=== PATIENT | female | born 1990 | race Caucasian/White ===

== ENCOUNTER 2016-11-16 04:09 | Emergency (ER) | payer OTHER ==
[~2016-11-16] VITALS: Ht 162.6 cm; Wt 64.3 kg
[~2016-11-16 04:09] MED LIST: GING1CAP2 PO; KFL500HP PO; PRENTAB26 PO
[2016-11-16 04:18] VITALS: TEMP 36.4; Ht 162.6 cm; Wt 64.3 kg
[2016-11-16 04:48] LABS: URINE APPEARANCE CLOUDY (CLEAR); URINE BILIRUBIN NEG (NEG); URINE COLOR YELLOW; URINE EPITHELIAL CELL AUTO >30 /lpf (0-5); URINE NITRITE NEG (NEG); URINE SPECIFIC GRAVITY 1.024 (1.000-1.030); UROBILINOGEN NEG (NEG); ZZUR CULT IF INDIC CLEAN CATCH YES
[2016-11-16 04:51] LABS: MANUAL MICROSCOPIC REQUIRED? NO; REVIEW REQ? NO
[2016-11-16] MEDS ORDERED: CEPH500C PO (05:04)
[2016-11-16] MEDS ORDERED: CEPHALEXIN MONOHYDRATE 250 MG CAP PO ONE (05:15)
[2016-11-16] MEDS ORDERED: CEPHALEXIN 500MG HOME PACK 1 EA BTL PO ONE (05:15)
[2016-11-16 05:16] VITALS: BP 91/52; PULSE 87; O2SAT 97
[2016-11-16] MEDS ORDERED: ACET325T96 PO (06:00)
--- NOTE | 2016-11-18 13:00 | EMERGENCY ROOM VISIT NOTE ---
History First contact with patient: 04:23 Chief Complaint: BACK PAIN Stated Complaint: BACK PAIN, 26 WEEKS PREG History of Present Illness The patient is a 25 year old female who presents to the Emergency Room with complaints of right-sided low back pain for the past 2 days. The patient is 26 weeks , and reports that she has had [place] contractions all day. She has not had vaginal drainage, discharge, or bleeding. No distinct abdominal pain. She has urinary frequency, however she tripped presents to the . She has been taking Tylenol without significant improvement of symptoms. She has not contacted her [facility]. Review of Systems More than 10 systems were reviewed and otherwise negative with the exception of history of present illness. Past Medical/Surgical History Medical Problems: (1) Anemia (2) [place] contractions (3) Depression (4) Hyperthyroidism (5) Intrauterine (6) Ovarian cyst (7) Vaginal delivery Family History Malignancy Social History Smoking Status: Never Smoker Alcohol Use: none Drug Use: none Marital Status: in relationship Housing Status: lives with significant other Occupation Status: employed Current/Historical Medications Scheduled Cephalexin Monohydrate (Keflex), 500 MG PO TID Multivit/Min/Iron/Fol Ac/Pren ( Vitamin), 1 TAB PO DAILY Miscellaneous Medications Acetaminophen Tab (Tylenol), 325 MG PO Allergies Coded Allergies: Nitrofurantoin (Verified Allergy, Mild, BLISTERS IN MOUTH, 11/16/16) SWELLING Physical Exam Vital Signs Date Time Temp Pulse Resp B/P Pulse Ox O2 Delivery O2 Flow Rate FiO2 11/16/16 05:16 87 20 91/52 97 11/16/16 04:18 36.4 90 16 106/70 97 Room Air Pain Rating (0-10): 7.0 Physical Exam VITALS: Vitals are noted on the nurse's note and reviewed by myself. Vital signs stable. GENERAL: Well-developed, well-nourished, white female, who is in no acute distress and resting comfortably. Patient is cooperative with the examination. HEAD: Normocephalic atraumatic. HEART: Regular rate and rhythm without murmurs gallops or rubs. LUNGS: Clear to auscultation bilaterally without wheezes, rales or rhonchi. No retractions or accessory muscle use. ABDOMEN: Positive normal bowel sounds x 4. Soft consistent with 26 week gestation. MUSCULOSKELETAL: No muscle atrophy, erythema, or edema noted. Mild right-sided SI joint tenderness on palpation. No CVA tenderness. NEURO: Patient was alert and oriented to person place and time. CN II through XII grossly intact. Medical Decision & Procedures Laboratory Results Test 11/16/16 04:30 Urine Color YELLOW Urine Appearance CLOUDY (CLEAR) Urine pH 7.0 (4.5-7.5) Urine Specific [place] 1.024 (1.000-1.030) Urine Protein NEG (NEG) Urine Glucose (UA) NEG (NEG) Urine Ketones NEG (NEG) Urine Occult Blood NEG (NEG) Urine Nitrite NEG (NEG) Urine Bilirubin NEG (NEG) Urine Urobilinogen NEG (NEG) Urine Leukocyte Esterase SMALL (NEG) Urine WBC (Auto) 10-30 /hpf (0-5) Urine RBC (Auto) 0-4 /hpf (0-4) Urine Hyaline Casts (Auto) 10-30 /lpf (0-5) Urine Epithelial Cells (Auto) >30 /lpf (0-5) Urine Bacteria (Auto) 2+ (NEG) Date/Time Source Procedure Growth Status 11/16/16 04:30 Urine , Clean Catch Urine Culture - Final MORE THAN THREE TYPES OF ORGANISMS [place]... Complete Medications Administered Medications (Trade) Dose Ordered Sig/Kelly Route Start Time Stop Time Status Last Admin Dose Admin Cephalexin Monohydrate (Keflex 500MG Home Pack) 1 homepack NOW ONCE PO 11/16/16 05:15 11/16/16 05:16 DC 11/16/16 05:11 1 HOMEPACK Cephalexin Monohydrate (Keflex Cap) 500 mg NOW ONCE PO 11/16/16 05:15 11/16/16 05:16 DC 11/16/16 05:11 500 MG ED Course Physical exam and history were performed. Nursing notes and EMR were reviewed. Patient appears to have right-sided low back pain as well as [place] contractions. On examination the patient does have some mild tenderness that appears muscle skeletal in nature. She was able to provide a urine sample which is concerning for a UTI. I discussed the case with my attending physician , Dr. Gonsalez, and we will start patient on Keflex. The patient appears otherwise clear from the emergency department standpoint. I did discuss the case with the [facility] upstairs, and recommendation is the patient leave here, and go up there for monitoring for her contractions. The patient was in agreement of this plan and was discharged to go upstairs to the mother-baby floor. The chart was completed utilizing [employer] Speech Voice Recognition Software. Grammatical errors, random word insertions, pronoun errors, and incomplete sentences are an occasional consequence of this system due to software limitations, ambient noise, and hardware issues. Any formal questions or concerns about the content, text, or information contained within the body of this dictation should be directly addressed to the provider for clarification. . Medical Decision Differential diagnosis includes, but is not limited to: Sprain, strain, fracture , dislocation, subluxation, contusion, musculoskeletal pain, related pain, UTI, contractions, and others Impression Primary Impression: UTI (urinary tract infection) Departure Information Dispostion Home / Self-Care Condition GOOD Prescriptions Cephalexin Monohydrate (Keflex) 500 Mg Cap 500 MG PO TID for 10 Days, #30 CAP Prov: Adonay Su PA-C 11/16/16 Forms HOME CARE DOCUMENTATION FORM, IMPORTANT VISIT INFORMATION Patient Instructions A Signature Page, [facility] Additional Instructions You were seen and evaluated today on an emergency basis only. This is not a substitute for, or an effort to provide, complete comprehensive medical care. It is not possible to recognize and treat all injuries or illnesses in a single emergency department visit. For this reason it is recommended that you followup with your [facility] as scheduled on Sunday for ongoing care and evaluation. Cephalexin(Keflex) 500mg: Take one pill 3 times daily for 10 days for your urine infection. All antibiotics can cause diarrhea. If this occurs and you feel worse or it does not resolve in 1-2 days follow up with your doctor or return to the Emergency Department as this could be signs of serious underlying problems. Any medication can cause an allergic reaction, stop the pills immediately and return to the ER for rash, hives, breathing difficulties, or swelling. You are welcome to return to the emergency department anytime with new, worsening, or concerning symptoms.
== END 2016-11-16 05:18 | disposition home or self-care (01) ==
LOC: C.EDB 04:11
DX: O08.83 Urinary tract infection following an ectopic and molar pregnancy (principal); Z3A.26 26 weeks gestation of pregnancy; D64.9 Anemia, unspecified; F32.9 Major depressive disorder, single episode, unspecified; E05.90 Thyrotoxicosis, unspecified without thyrotoxic crisis or storm; N83.209 Unspecified ovarian cyst, unspecified side; Z88.8 Allergy status to other drugs, medicaments and biological substances

== ENCOUNTER 2016-11-16 05:35 | Outpatient (CLI) | payer OTHER ==
[~2016-11-16] VITALS: Ht 154.9 cm; Wt 60.0 kg
[~2016-11-16 05:35] MED LIST changes: +CEPH500C PO
[2016-11-16] MEDS ORDERED: ACET325T96 PO (06:00)
[2016-11-16 06:01] VITALS: Ht 154.9 cm; Wt 60.0 kg
== END 2016-11-16 06:08 | disposition home or self-care (01) ==
LOC: C.OPB 05:35 → C.LD 05:35 → C.OPB 06:08
PROVIDERS: ATTEND Obstetrics & Gynecology
DX: O47.9 False labor, unspecified (principal); Z3A.26 26 weeks gestation of pregnancy

== ENCOUNTER 2017-01-22 12:51 | Emergency (ER) | payer BC, OTHER ==
[~2017-01-22] VITALS: Ht 154.9 cm; Wt 68.5 kg
[~2017-01-22 12:51] MED LIST changes: +ACET325T96 PO; -CEPH500C PO; -GING1CAP2 PO; -KFL500HP PO
[2017-01-22 13:00] VITALS: Ht 154.9 cm; Wt 68.5 kg
[2017-01-22] MEDS ORDERED: ACET-1256 PO (13:11)
[2017-01-22] MEDS ORDERED: SODIUM CHLORIDE 0.9% 1000ML 1,000 ML IV STA (13:20)
[2017-01-22] MEDS ORDERED: ONDANSETRON INJ 2 MG/ML 2 ML VIAL IV STA (13:20)
[2017-01-22 13:55] LABS: BASO % 0.1 %; BASO ABS # 0.01 K/uL (0-0.2); COMPLETE YES; EOS % 0.8 %; HEMATOCRIT 27.8 % (37-47); IG% 0.4 %; LYMPH % 12.5 %; LYMPH ABS # 1.21 K/uL (1.2-3.4); MEAN CELL VOLUME 82.2 fL (80-100); MEAN CORPUSCULAR HEMOGLOBIN 27.2 pg (25-34); MEAN CORPUSCULAR HGB CONC 33.1 g/dl (32-36); MEAN PLATELET VOLUME 9.4 fL (7.4-10.4); MONO % 4.7 %; NEUT % 81.5 %; PLATELET COUNT 228 K/uL (130-400); RED BLOOD COUNT 3.38 M/uL (4.2-5.4)
[2017-01-22 14:22] LABS: ALT/SGPT 18 U/L (12-78); AST/SGOT 18 U/L (15-37); BLOOD UREA NITROGEN 9 mg/dl (7-18); BUN/CREATININE RATIO 18.7 (10-20); CALCIUM 8.2 mg/dl (8.5-10.1); CARBON DIOXIDE 24 mmol/L (21-32); CHLORIDE 105 mmol/L (98-107); GLUCOSE 87 mg/dl (70-99); POTASSIUM 3.4 mmol/L (3.5-5.1); SODIUM 137 mmol/L (136-145)
[2017-01-22 14:24] LABS: ALKALINE PHOSPHATASE 91 U/L (45-117)
[2017-01-22 15:17] LABS: URINE APPEARANCE CLEAR (CLEAR); URINE BILIRUBIN NEG (NEG); URINE COLOR YELLOW; URINE EPITHELIAL CELL AUTO >30 /lpf (0-5); URINE NITRITE NEG (NEG); URINE PH 7.5 (4.5-7.5); URINE SPECIFIC GRAVITY 1.019 (1.000-1.030); UROBILINOGEN NEG (NEG); ZZUR CULT IF INDIC CLEAN CATCH YES
[2017-01-22 15:20] LABS: MANUAL MICROSCOPIC REQUIRED? NO; REVIEW REQ? YES
[2017-01-22] MEDS ORDERED: ONDA4TAB10 SL (16:15)
--- NOTE | 2017-01-22 16:17 | EMERGENCY ROOM VISIT NOTE ---
History First contact with patient: 13:12 Chief Complaint: BACK PAIN Stated Complaint: BACK PAIN, VOMITING, DIZZINESS History of Present Illness The patient is a 26 year old female who is 36 weeks presents to the Emergency Room with complaints of nausea and vomiting which started last night at 11 PM. The patient also states that she woke up this morning with low back pain but denies any flank pain, abdomen pain, urinary symptoms of frequency, urgency, dysuria or hematuria. The patient states she had a normal bowel movement yesterday. The patient states that her had similar symptoms yesterday morning. The patient has been able to keep down some Gatorade and a few crackers today. Review of Systems 10 system review was performed and was negative unless stated otherwise history of present illness. Past Medical/Surgical History Medical Problems: (1) Anemia (2) [place] contractions (3) Depression (4) Hyperthyroidism (5) Intrauterine (6) Ovarian cyst (7) Vaginal delivery Family History Malignancy Social History Smoking Status: Never Smoker Alcohol Use: none Drug Use: none Marital Status: in relationship Housing Status: lives with significant other Occupation Status: employed Current/Historical Medications Scheduled Multivit/Min/Iron/Fol Ac/Pren ( Vitamin), 1 TAB PO DAILY Miscellaneous Medications Acetaminophen (Tylenol), 500 MG PO Allergies Coded Allergies: Nitrofurantoin (Verified Allergy, Mild, BLISTERS IN MOUTH, 01/22/17) SWELLING Physical Exam Vital Signs Date Time Temp Pulse Resp B/P Pulse Ox O2 Delivery O2 Flow Rate FiO2 01/22/17 14:14 87 18 97/58 97 Room Air 01/22/17 13:00 36.9 109 18 93/61 98 Room Air Physical Exam GENERAL: 26-year-old white female who is 36 weeks presents in no acute distress. MENTAL Status: Alert and oriented 3. MOUTH: Mucosa is slightly dry. NECK: Supple, no lymphadenopathy noted. No carotid bruits noted. LUNGS: Clear auscultation without wheezes rales or rhonchi. CARDIAC: Regular rate and rhythm without murmur. Pulses is full and equal throughout. BACK: No CVA tenderness noted. ABDOMEN: Positive bowel sounds all 4 quadrants. Abdomen is firm consistent with 36 weeks . LUMBAR SPINE: No gross bony deformity noted. The patient is nontender to palpation over the spinous processes. She is tender to palpation over the paravertebral regions bilaterally. Full range of motion. EXTREMITIES: No cyanosis or edema noted. Medical Decision & Procedures Laboratory Results 01/22/17 13:35 Red Blood Count 3.38, Mean Corpuscular Volume 82.2, Mean Corpuscular Hemoglobin 27.2, Mean Corpuscular Hemoglobin Concent 33.1, Mean Platelet Volume 9.4, Neutrophils (%) (Auto) 81.5, Lymphocytes (%) (Auto) 12.5, Monocytes (%) (Auto) 4.7, Eosinophils (%) (Auto) 0.8, Basophils (%) (Auto) 0.1, Neutrophils # (Auto) 7.90, Lymphocytes # (Auto) 1.21, Monocytes # (Auto) 0.46, Eosinophils # (Auto) 0.08, Basophils # (Auto) 0.01 01/22/17 13:35 Test 01/22/17 13:35 White Blood Count 9.70 K/uL (4.8-10.8) Red Blood Count 3.38 M/uL (4.2-5.4) Hemoglobin 9.2 g/dL (12.0-16.0) Hematocrit 27.8 % (37-47) Mean Corpuscular Volume 82.2 fL (80-100) Mean Corpuscular Hemoglobin 27.2 pg (25-34) Mean Corpuscular Hemoglobin Concent 33.1 g/dl (32-36) Platelet Count 228 K/uL (130-400) Mean Platelet Volume 9.4 fL (7.4-10.4) Neutrophils (%) (Auto) 81.5 % Lymphocytes (%) (Auto) 12.5 % Monocytes (%) (Auto) 4.7 % Eosinophils (%) (Auto) 0.8 % Basophils (%) (Auto) 0.1 % Neutrophils # (Auto) 7.90 K/uL (1.4-6.5) Lymphocytes # (Auto) 1.21 K/uL (1.2-3.4) Monocytes # (Auto) 0.46 K/uL (0.11-0.59) Eosinophils # (Auto) 0.08 K/uL (0-0.5) Basophils # (Auto) 0.01 K/uL (0-0.2) RDW Standard Deviation 38.6 fL (36.4-46.3) RDW Coefficient of Variation 12.8 % (11.5-14.5) Immature Granulocyte % (Auto) 0.4 % Immature Granulocyte # (Auto) 0.04 K/uL (0.00-0.02) Urine Color YELLOW Urine Appearance CLEAR (CLEAR) Urine pH 7.5 (4.5-7.5) Urine Specific [place] 1.019 (1.000-1.030) Urine Protein NEG (NEG) Urine Glucose (UA) NEG (NEG) Urine Ketones TRACE (NEG) Urine Occult Blood NEG (NEG) Urine Nitrite NEG (NEG) Urine Bilirubin NEG (NEG) Urine Urobilinogen NEG (NEG) Urine Leukocyte Esterase MODERATE (NEG) Urine WBC (Auto) 10-30 /hpf (0-5) Urine RBC (Auto) 0-4 /hpf (0-4) Urine Hyaline Casts (Auto) 1-5 /lpf (0-5) Urine Epithelial Cells (Auto) >30 /lpf (0-5) Urine Bacteria (Auto) 1+ (NEG) Urine Renal Epithelial Cells 0-5 /lpf (0-5) Anion Gap 8.0 mmol/L (3-11) Est Creatinine Clear Calc Drug Dose 153.5 ml/min Estimated GFR () > 150.0 Estimated GFR (Non- 135.5 BUN/Creatinine Ratio 18.7 (10-20) Calcium Level 8.2 mg/dl (8.5-10.1) Total Bilirubin 0.4 mg/dl (0.2-1) Direct Bilirubin < 0.1 mg/dl (0-0.2) Aspartate Amino Transf (AST/SGOT) 18 U/L (15-37) Alanine Aminotransferase (ALT/SGPT) 18 U/L (12-78) Alkaline Phosphatase 91 U/L (45-117) Total Protein 6.5 gm/dl (6.4-8.2) Albumin 2.8 gm/dl (3.4-5.0) Lipase 126 U/L (73-393) Medications Administered Medications (Trade) Dose Ordered Sig/Kelly Route Start Time Stop Time Status Last Admin Dose Admin Sodium Chloride (Nss 1000ml) 1,000 ml @ 999 mls/hr Q1H1M STAT IV 01/22/17 13:20 01/22/17 14:20 DC 01/22/17 13:47 999 MLS/HR Ondansetron HCl (Zofran Inj) 4 mg NOW STAT IV 01/22/17 13:20 01/22/17 13:23 DC 01/22/17 13:47 4 MG ED Course The patient was evaluated. IV access was obtained. heart tones were 152. The patient was given 1 L normal saline wide-open. CBC and differential, renal profile, LFTs and lipase levels were ordered. Urinalysis was ordered. The patient was given Zofran 4 mg IV push for nausea. Labs are reviewed. The patient's hemoglobin was 9.2 and her hematocrit was 27.8. Her last hemoglobin was 10.2 on review of her EMR. I discussed the case withDr. Retana who agreed with treatment plan. I tried to reach Dr. Dominguez to talk to him about the patient that he was in the operating room. The patient was reevaluated and was feeling better. Her urine showed some leukocytes and bacteria but there was a lot epithelial cells therefore it will be sent for culture. Culture is pending. I spoke with Dr. Dominguez and stated just to encourage the patient to make sure she is taking iron pills. I spoke with the patient she states that she takes them every now and then because they make her sick. I told her he wants her to take them twice a day. The patient verbalized understanding. The patient was discharged home in stable condition. Medical Decision Differential diagnosis include gastroenteritis, small bowel obstruction, UTI, pyelonephritis, colitis Impression Primary Impression: Viral gastritis Additional Impression: Anemia Departure Information Dispostion Home / Self-Care Condition GOOD Prescriptions Ondasetron Odt (ZOFRAN ODT) 4 Mg Tab 4 MG SL Q6H for Nausea, #14 TAB Prov: Morena Feldman PA-C 01/22/17 Referrals Kina ChenC.R.N.P. (PCP) Forms HOME CARE DOCUMENTATION FORM, IMPORTANT VISIT INFORMATION Patient Instructions ED Nausea Vomiting, My [facility] Additional Instructions Push fluids. Take Zofran as needed for nausea. Follow bland diet. Advance diet slowly as tolerated. Try to take your iron pills twice daily. Keep scheduled appointment with [facility] for regular follow-up. If symptoms persist or worsen, return to ER. Problem Qualifiers Additional Impression: Anemia Anemia type: iron deficiency Iron deficiency anemia type: unspecified iron deficiency Qualified Codes: D50.9 - Iron deficiency anemia, unspecified
[2017-01-22 16:18] VITALS: BP 112/59; PULSE 78; TEMP 36.9; O2SAT 98
== END 2017-01-22 16:19 | disposition home or self-care (01) ==
LOC: C.EDB 12:52 → C.EDC 16:19
DX: O21.2 Late vomiting of pregnancy (principal); A08.4 Viral intestinal infection, unspecified; O99.013 Anemia complicating pregnancy, third trimester; D50.9 Iron deficiency anemia, unspecified; Z3A.36 36 weeks gestation of pregnancy

== ENCOUNTER 2017-02-09 05:10 | Inpatient (IN) | payer BC ==
[~2017-02-09] VITALS: Ht 154.9 cm; Wt 70.0 kg
[~2017-02-09 05:10] MED LIST changes: +ACET-1256 PO; -ACET325T96 PO; +ONDA4TAB10 SL
[2017-02-09] MEDS ORDERED: LACTATED RINGER'S 1000ML 1,000 ML IV PRN (05:44)
[2017-02-09] MEDS ORDERED: PENICILLIN G POTASSIUM IV 3 MU in DEXTROSE 5% 100ML 100 ML IV PRN (05:45)
[2017-02-09 05:56] VITALS: Ht 154.9 cm; Wt 70.0 kg
[2017-02-09] MEDS ORDERED: PRENTAB26 PO (05:57)
[2017-02-09] MEDS ORDERED: PENICILLIN G POTASSIUM IV 6 MU in DEXTROSE 5% 250ML 250 ML IV ONE (06:00)
[2017-02-09] MEDS: LACTATED RINGER'S 1000ML 1,000 ML IV SCH ×2 (06:14→09:09)
[2017-02-09 06:18] LABS: HEMATOCRIT 28.1 % (37-47); MEAN CELL VOLUME 79.8 fL (80-100); MEAN CORPUSCULAR HEMOGLOBIN 26.4 pg (25-34); MEAN CORPUSCULAR HGB CONC 33.1 g/dl (32-36); PLATELET COUNT 254 K/uL (130-400); RED BLOOD COUNT 3.52 M/uL (4.2-5.4); WHITE BLOOD COUNT 16.41 K/uL (4.8-10.8)
[2017-02-09] MEDS ORDERED: OXYTOCIN 30 UNITS/500ML NSS IV ONE (07:17)
[2017-02-09] MEDS ORDERED: BUTORPHANOL TARTRATE 1 MG/ML VIAL ONE (07:41)
[2017-02-09] MEDS ORDERED: BUTORPHANOL TARTRATE 1 MG/ML VIAL IV ONE (07:45)
[2017-02-09] MEDS ORDERED: BUPIVACAINE 0.25% 30 ML VIAL ONE (08:12)
[2017-02-09] MEDS ORDERED: EpHEDrine SULFATE INJ 50 MG/ML AMP ONE (08:12)
[2017-02-09] MEDS ORDERED: FENTANYL 2MCG/ML ROPIV 1.25MG/ML 100ML BAG EPI ONE (08:12)
[2017-02-09] MEDS: FENTANYL CITRATE INJ 50 MCG/1 ML 2 ML VIAL ONE ×2 (08:16→08:51)
[2017-02-09] MEDS ORDERED: LACTATED RINGER'S 1000ML 500 ML IV PRN (08:50)
[2017-02-09] MEDS ORDERED: NALOXONE HCL INJ 1 MG in SODIUM CHLORIDE 0.9% 1000ML 1,000 ML IV PRN (08:50)
[2017-02-09] MEDS ORDERED: NALOXONE HCL INJ 0.4 MG/1 ML VIAL/CARP IV PRN (09:00)
[2017-02-09] MEDS ORDERED: ONDANSETRON INJ 2 MG/ML 2 ML VIAL IV PRN (09:00)
[2017-02-09] MEDS ORDERED: NALBUPHINE HCL INJ 10 MG/ML AMP IV PRN (09:00)
[2017-02-09] MEDS ORDERED: PROMETHAZINE HCL INJ 12.5 MG in SODIUM CHLORIDE 0.9% 50ML 50 ML IV PRN (09:00)
[2017-02-09] MEDS ORDERED: EpHEDrine SULFATE INJ 50 MG/ML AMP IV PRN (09:00)
[2017-02-09] MEDS ORDERED: DiphenhydrAMINE HCL 50 MG/ML VIAL IV PRN (09:00)
[2017-02-09] MEDS ORDERED: FENTANYL 2MCG/ML ROPIV 1.25MG/ML 100ML BAG EPI PRN (09:00)
[2017-02-09] MEDS ORDERED: BENZOCAINE 20% AER SPR 82.5 GM CAN EXT PRN (09:45)
[2017-02-09] MEDS ORDERED: VARICELLA VIRUS VACCINE LIVE 1 VIAL SQ. ONE (09:45)
[2017-02-09] MEDS ORDERED: SUPERCREAM 0.870 % 15GM JAR EXT PRN (09:45)
[2017-02-09] MEDS ORDERED: OXYTOCIN 30 UNITS/500ML NSS IV PRN (09:45)
[2017-02-09] MEDS ORDERED: HYDROCORTISONE ACETATE 25 MG SUPP PR PRN (09:45)
[2017-02-09] MEDS ORDERED: LANOLIN OINT EXT PRN ×2 (09:45)
[2017-02-09] MEDS ORDERED: DIPHTHERIA/TETANUS/PERTUSSIS 0.5 ML SYR/VIAL IM. ONE (09:45)
[2017-02-09] MEDS ORDERED: ACETAMINOPHEN 325 MG TAB PO PRN (09:45)
--- NOTE | 2017-02-09 09:53 | DELIVERY SUMMARY ---
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 Group B strep positive, antibiotic started. She requested epidural. After epidural she had a bulging membranes and was 7-8 cm. ARM performed for clear fluid. heart rate tracing category 1. Rapidly progressed to fully dilated and pushed the baby over right occiput anterior position. Mouth suctioned then nares. No nuchal cord. Baby delivered with no excessive force and with the use of gentle traction. Live, vigorous . Cord clamped and cut. Cord gasses obtained. Cord blood obtained. Placenta removed with gentle traction. Small first degree tail repaired with 3-0 Vicryl. Sponge and instrument counts correct. Estimated blood loss 250 mL. I attest to the content of the Intraoperative Record and any orders documented therein. Any exceptio ns are noted below.
--- NOTE | 2017-02-09 10:33 | Anesthesia Procedure Note ---
Anesthesia Epidural Removal Nt Date & Time Feb 09, 2017 at 10:33 Vital Signs Pain Intensity: 0.0 Notes Mental Status: alert / awake / arousable, participated in evaluation Nausea / Vomiting: adequately controlled Pain: adequately controlled Airway Patency, RR, SpO2: stable & adequate BP & HR: stable & adequate Hydration State: stable & adequate Neuraxial Anesthesia: was administered Anesthetic Complications: no major complications apparent, pt satisfied with anesthetic care Epidural: removed without complications, with tip intact
[2017-02-09] MEDS: IBUPROFEN 600 MG TAB PO PRN ×3 (13:07→19:39)
[2017-02-09 14:32] VITALS: BP 97/53; PULSE 81; TEMP 36.7
[2017-02-09 15:27] VITALS: BP 97/62; PULSE 82; TEMP 36.9
[2017-02-09] MEDS: ACETAMINOPHEN/CODEINE 300/30MG TAB PO PRN ×2 (15:49→19:40)
[2017-02-09] MEDS: DOCUSATE SODIUM 100 MG CAP PO SCH (19:39)
[2017-02-09 19:40] VITALS: BP 107/71; PULSE 66; TEMP 37
[2017-02-09 23:00] VITALS: BP 103/66; PULSE 71; TEMP 37
[2017-02-10] MEDS: IBUPROFEN 600 MG TAB PO PRN ×6 (01:21→20:53)
[2017-02-10] MEDS: ACETAMINOPHEN/CODEINE 300/30MG TAB PO PRN ×6 (01:23→21:50)
[2017-02-10 03:40] VITALS: BP 104/69; PULSE 73; TEMP 36.8
--- NOTE | 2017-02-10 06:27 | Progress Note ---
Subjective Feb 10, 2017. Subjective conversation w/ patient, physical exam Ambulation: ambulating normally Voiding: no voiding problems Passing Gas: Yes Diet Tolerance: Regular Diet Lochia: Small Feeding Type: Breast Feeding Review of Systems Constitutional: No chills, No fever Respiratory: No cough, No shortness of breath Cardiac: No chest pain, No claudication Objective Vital Signs Date Time Temp Pulse Resp B/P Pulse Ox O2 Delivery O2 Flow Rate FiO2 02/10/17 03:40 36.8 73 18 104/69 Room Air 02/09/17 23:00 Room Air 02/09/17 23:00 37.0 71 18 103/66 Room Air 02/09/17 19:40 37.0 66 18 107/71 Room Air 02/09/17 15:30 Room Air 02/09/17 15:27 36.9 82 20 97/62 02/09/17 14:32 36.7 81 20 97/53 Physical Exam General Appearance: WELL-APPEARING, NO APPARENT DISTRESS Respiratory/Chest: lungs clear, no accessory muscle use Cardiovascular: regular rate, rhythm, no murmur Fundus: Firm, Non-Tender, Relation to Umbilicus (2 cm below) Extremities: non-tender, no calf tenderness Laboratory Results Last 24 Hours Test 02/10/17 04:44 Assessment and Plan Problem List Medical Problems: (1) Abdominal cramping Status: Acute (2) Abdominal cramping, bilateral lower quadrant Status: Acute (3) Acute gastritis Status: Acute (4) Anemia Status: Acute (5) Biliary colic Status: Acute (6) Low back pain Status: Acute (7) Miscarriage Status: Acute (8) Pleurisy Status: Acute (9) Pleuritic chest pain Status: Acute (10) Sprain of knee Status: Acute (11) Threatened miscarriage Status: Acute (12) Upper respiratory infection Status: Acute (13) Vaginal discharge Status: Acute (14) Viral gastritis Status: Acute Post- Day#: 1 Continue Routine Care: s/p Day 1 - vitals reviewed and wnl - Hgb 9.3 yesterday yesterday - blood: O-, GBS+, Rubella immune - encourage ambulation, monitor lochia, and encourage breast feeding - patient doing well clinically - CONTINUE ROUTINE POST CARE Resident Physician Supervision Note: I interviewed and examined the patient. Discussed with Dr. Celis and agree with findings and plan as documented in the note. Any exceptions or clarifications are listed here: [None] Documented By: Robel Dominguez
[2017-02-10 07:30] VITALS: BP 95/60; PULSE 72; TEMP 36.3
[2017-02-10 07:55] LABS: HEMATOCRIT 26.1 % (37-47)
[2017-02-10] MEDS: DOCUSATE SODIUM 100 MG CAP PO SCH ×2 (07:56→19:50)
[2017-02-10] MEDS: PRENATAL VITAMIN TAB PO SCH (07:56)
[2017-02-10 15:00] VITALS: BP 99/65; PULSE 70; TEMP 36.4
[2017-02-10 23:30] VITALS: BP 89/54; PULSE 68; TEMP 36.5; O2SAT 96
[2017-02-11] MEDS: IBUPROFEN 600 MG TAB PO PRN ×3 (02:22→10:35)
[2017-02-11] MEDS: ACETAMINOPHEN/CODEINE 300/30MG TAB PO PRN ×3 (02:23→10:36)
--- NOTE | 2017-02-11 05:11 | Discharge Instructions ---
Discharge Instructions Date of Service Feb 11, 2017. Admission Reason for Admission: LABOR Discharge Discharge Diagnosis / Problem: s/p delivery Discharge Goals Goal(s): Routine recovery after delivery Medications Continue Dispensed Medications: supercream, dermaplast, tucks, lansinoh Activity Recommendations Activity Limitations: as noted below . Instructions / Follow-Up Instructions / Follow-Up ACTIVITY RECOMMENDATIONS: * Gradual return to full activity over the next 2-3 weeks. * No lifting - nothing heavier than baby over the next 2-3 weeks. * Do not engage in vigorous exercise, sexual activity or sports until cleared by your physician. * Do not drive or operate any motorized equipment until cleared by your physician. * You may shower/bathe daily. MEDICATIONS: For discomfort or pain, you may use Acetaminophen (Tylenol), Ibuprofen (Advil), or Naproxen (Aleve) following the package directions. For constipation you may use Colace following the package directions. BREAST CARE: If you are not breast feeding: * Wear a supportive bra 24 hours a day for one to two weeks. * Avoid stimulating your breasts and nipples as much as possible during the first few weeks after delivery. * When taking a shower, have the warm water hit your back, not breasts. * When your breasts feel full, apply ice packs. Usually three to four times a day helps ease the discomfort. * Take a mild pain medication (Tylenol / Motrin) when you are uncomfortable. If breast feeding: * Use breast milk to lubricate nipples. Lansinoh cream may be used for sore nipples. You do not need to remove cream prior to breast feeding. If using a different brand of cream, check the label for directions regarding removal of cream prior to nursing. * Wear a supportive bra. * If having problems with breasts or breast feeding, call a field technical support consultant or your health care provider. EPISIOTOMY CARE: After delivery, if you have an episiotomy (stitches), the following steps will ease discomfort and aid healing. * For the first 24 hours after delivery, place ice packs next to your episiotomy to help reduce swelling. * After the first 24 hour-period, sitz baths, either portable or in the tub, are suggested. A shower with a shower arm sprayed over the episiotomy may be comforting. * Anjali care should be done after each voiding and bowel movement. Squirt warm water from a plastic bottle over the perineum (region of the body between the anus and urinary opening) and pat dry. * Use Dermoplast to ease discomfort. Shake container. Clifton directly over the episiotomy. Place a Tucks on a clean sanitary pad next to your episiotomy. SPECIAL CARE INSTRUCTIONS: When you are discharged from the hospital, it is important for you to follow the instructions listed below: * During the first week at home, you should be able to care for yourself and your baby. In addition, the usual light household activities are encouraged. * Limit your activities to the way you feel. Do not try to clean the house or move furniture. Be sensible. * If you actively engage in sports and have done so up until the time of your delivery, you may resume these activities as soon as you feel able. This may take up to one month or even longer. Use good judgment. * Continue to take your vitamins for at least six weeks after the of your baby. * Your diet need not be limited unless you were on a special diet before your delivery. Breast-feeding mothers need around 2500 calories per day and at least 64-80 ounces of fluid per day (8 to 10 glasses). * You should eat foods from the four major food groups. Crash diets or fad diets are to be avoided. Eating lean meats, fresh fruits and vegetables, low-fat dairy products, high fiber foods and a regular exercise program, will help you get back to your pre- weight without putting your health at risk. * Constipation is sometimes a problem after delivery. Take a mild laxative as needed. If breast feeding, Milk of Magnesia is acceptable to use. You may use a suppository or Fleets enema if no episiotomy. * A daily shower or tub bath is suggested. Be sure to thoroughly and gently dry the perineum. * A bloody vaginal discharge will usually continue until around four weeks post . A small amount of bleeding may continue for as long as six weeks. Vaginal discharge changes from the bright red bleeding after delivery to pink then brownish and finally yellowish-pink before becoming white and disappearing. * Bleeding may increase with activity. Your first period may come in 4-8 weeks. If you are breast feeding, your period may be delayed even longer. * Thunderbolt (sex) can begin whenever both you and your partner feel comfortable and do not have any form of genital infection. It is recommended that you wait at least six weeks for internal and external healing to occur. If you have questions, please talk to your health care practitioner. A condom should be used to prevent infection and . * Foreplay, gentle intercourse and lubrication is very important the first several times to prevent pain. A water-based lubricant such as K-Y jelly or Astroglide may be used. * If you have RH negative blood and your baby is RH positive, you will receive RHOGAM by injection prior to discharge. The nurse will give you a card to keep with you that has the date and place that you received RHOGAM after delivery. * During your care, you had a Rubella screen done to check for the presence of rubella antibodies in your blood. If your test was negative, you will receive a Rubella vaccine prior to discharge. This vaccine may cause a fever, soreness at the injection site and flu-like symptoms. If these symptoms persist, notify your health care practitioner. is not advised for one month after a Rubella vaccine. * Verbalizes understanding of car seat law as reviewed with patient nursing. * Car Seat hand-out given and reviewed with patient by nursing. * Shaken baby information reviewed with patient by nursing. Call you doctor if: * Heavy bleeding (saturating several pads an hour) or passing clots the size of your fist. * A fever >101 degrees F (38.3 degrees C) on two occasions four hours apart and /or chills. * Unusual pain in the pelvic or vaginal areas. * "Baby Blues" lasting longer than two weeks. If you have any questions or concerns, call your health care practitioner at . FOLLOW UP VISIT: * Please call the office at to schedule a 6 week examination. It is important you keep this appointment. It is important for you to make arrangements for either yearly or twice yearly check-ups thereafter. Current Hospital Diet Patient's current hospital diet: Regular OB Diet Discharge Diet Recommended Diet: Regular Diet Pending Studies Studies pending at discharge: no Medical Emergencies . Who to Call and When: Medical Emergencies: If at any time you feel your situation is an emergency, please call 911 immediately. . Non-Emergent Contact Non-Emergency issues call your: Air Conditioning Supervisor . . "Provider Documentation" section prepared by Maria Ines Lynch. VTE Core Measure Inpt VTE Proph given/why not?: Treatment not indicated
--- NOTE | 2017-02-11 07:16 | Progress Note ---
Subjective Feb 11, 2017. Subjective conversation w/ patient, physical exam Ambulation: ambulating normally Voiding: no voiding problems Diet Tolerance: Regular Diet Lochia: Small Feeding Type: Breast Feeding Pain: no pain issues. Objective Vital Signs Date Time Temp Pulse Resp B/P Pulse Ox O2 Delivery O2 Flow Rate FiO2 02/10/17 23:30 96 Room Air 02/10/17 23:30 36.5 68 20 89/54 96 Room Air 02/10/17 15:00 36.4 70 20 99/65 Room Air 02/10/17 15:00 Room Air 02/10/17 07:30 Room Air 02/10/17 07:30 36.3 72 18 95/60 Room Air Physical Exam General Appearance: WELL-APPEARING, WD/WN, NO APPARENT DISTRESS Respiratory/Chest: lungs clear Cardiovascular: regular rate, rhythm Abdomen: non tender, soft Fundus: Firm, Relation to Umbilicus (2 down) Extremities: non-tender Laboratory Results Last 24 Hours Test 02/10/17 07:40 Hemoglobin 8.5 g/dL Hematocrit 26.1 % Assessment and Plan Problem List Medical Problems: (1) Abdominal cramping Status: Acute (2) Abdominal cramping, bilateral lower quadrant Status: Acute (3) Acute gastritis Status: Acute (4) Anemia Status: Acute (5) Biliary colic Status: Acute (6) Low back pain Status: Acute (7) Miscarriage Status: Acute (8) Pleurisy Status: Acute (9) Pleuritic chest pain Status: Acute (10) Sprain of knee Status: Acute (11) Threatened miscarriage Status: Acute (12) Upper respiratory infection Status: Acute (13) Vaginal discharge Status: Acute (14) Viral gastritis Status: Acute Post- Day#: 2 Continue Routine Care: stable for discharge home, breast, f/u 6 wks pp check, instructions reviewed.
[2017-02-11 07:30] VITALS: BP 99/67; PULSE 71; TEMP 36.5
[2017-02-11] MEDS: PRENATAL VITAMIN TAB PO SCH (08:41)
[2017-02-11] MEDS: DOCUSATE SODIUM 100 MG CAP PO SCH (08:41)
[2017-02-11 11:37] VITALS: BP_DIAS 67; PULSE 71; TEMP 36.5
== END 2017-02-11 11:35 | disposition home or self-care (01) | DRG 775 ==
LOC: C.LD 05:10 → C.OPB 05:10 → C.LD 05:45 → C.OPB 05:45 → C.OBG 14:09
PROVIDERS: ADMIT Obstetrics & Gynecology; ATTEND Obstetrics & Gynecology
PROC: 0HQ9XZZ Repair Perineum Skin, External Approach (ICD-10-PCS; principal; 2017-02-09)
PROC: 10E0XZZ Delivery of Products of Conception, External Approach (ICD-10-PCS; principal; 2017-02-09)
DX: O99.824 Streptococcus B carrier state complicating childbirth (principal); O70.0 First degree perineal laceration during delivery; Z3A.38 38 weeks gestation of pregnancy; Z37.0 Single live birth

== ENCOUNTER 2017-05-12 12:04 | Emergency (ER) | payer BC, OTHER ==
[~2017-05-12] VITALS: Ht 157.5 cm; Wt 62.4 kg
[~2017-05-12 12:04] MED LIST changes: -ONDA4TAB10 SL
[2017-05-12 12:08] VITALS: TEMP 36.8; Ht 157.5 cm; Wt 62.4 kg
[2017-05-12] MEDS ORDERED: BCPILLS PO (12:20)
[2017-05-12] MEDS ORDERED: HYDR-5688 PO (12:37)
[2017-05-12 13:01] VITALS: BP 132/79; PULSE 89; O2SAT 97
--- NOTE | 2017-05-12 17:06 | EMERGENCY ROOM VISIT NOTE ---
History First contact with patient: 12:15 Chief Complaint: SHOULDER PAIN Stated Complaint: ARM/SHOULDER/BACK PAIN History of Present Illness The patient is a 26 year old white female who presents to the Emergency Room with complaints of left shoulder pain since yesterday. 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 She did not have any pain in the shoulder at that point. Pain began later that evening. Yesterday it was more severe and she states she called off work. She did not do anything. She states the pain improved somewhat but continues to be present. She points to the trapezius as the area of discomfort. No symptoms on the right. No other treatment. No prior history of similar discomfort. She is having difficulty with shoulder motion as well as lifting secondary to pain. She states she gets intermittent numbness radiating into the arm on the left side. No neck pain. Review of Systems REVIEW OF SYSTEM: HEENT: No dizziness, visual problems, hearing loss, or tinnitus. There is no difficulty swallowing and no oral lesions are present. PULMONARY: No cough, shortness of breath, sputum production or hemoptysis. CARDIOVASCULAR: No chest pain, palpitations, shortness of breath or peripheral edema. GASTROINTESTINAL: No diarrhea, constipation, nausea, vomiting, or abdominal pain. GENITOURINARY: No dysuria, frequency, urgency or nocturia. NEUROLOGIC: No weakness, muscle tenderness, epilepsy or history of neurological problems. MUSCULOSKELETAL: No history of joint tenderness/swelling. No history of arthritis or arthralgias. SKIN: No rashes or lesions. ENDOCRINE: No history of diabetes, thyroid disorders, or abnormal hair growth. Past Medical/Surgical History Medical Problems: (1) Anemia (2) Yuri Muniz contractions (3) Depression (4) Hyperthyroidism (5) Intrauterine (6) Normal labor (7) Ovarian cyst (8) with 38 completed weeks gestation (9) Vaginal delivery Family History Malignancy Social History Smoking Status: Never Smoker Smokeless Tobacco Use: No Alcohol Use: none Drug Use: none Marital Status: in relationship Housing Status: lives with significant other Occupation Status: employed Current/Historical Medications Scheduled Control Pills ( Control Pills), 1 TAB PO DAILY Scheduled PRN Hydrocodone/Acetaminophen 5MG/325MG ([place] 5MG/325MG), 1-2 TABLET PO Q6H PRN for Pain Allergies Coded Allergies: Nitrofurantoin (Verified Allergy, Mild, BLISTERS IN MOUTH, 02/09/17) SWELLING Physical Exam Vital Signs Date Time Temp Pulse Resp B/P (MAP) Pulse Ox O2 Delivery O2 Flow Rate FiO2 05/12/17 13:01 89 20 132/79 97 05/12/17 12:08 36.8 91 18 117/73 96 Room Air Pain Rating (0-10): 5.0 Physical Exam Gen.: Well-developed, well-nourished, young white female, in no acute distress. Sitting on a bed. Alert and oriented. Skin:Warm and dry with good turgor. No rashes or lesions. No ecchymosis or erythema. The patient is not diaphoretic. No abrasions. Musculoskeletal: Left shoulder evaluation reveals no obvious asymmetry or deformity. She has full range of motion of the shoulder including overhead breech. Motion above shoulder level does cause increased pain. No pain with palpation over the pectoral muscle, deltoid, biceps, or triceps. She has focal discomfort and palpable spasm in the left trapezius muscle. Mild discomfort with palpation over the supraspinatus. No pain with palpation over the teres minor or infraspinatus. No pain in the latissimus paraspinal musculature. No pain with palpation over her cervical or thoracic spine. She has full range of motion of her neck. Right rotation causes left trapezius pain. Left rotation causes left trapezius pain. She does have pain with supraspinatus testing, Bautista testing, and Neer impingement testing. Mild weakness secondary to pain. No drop arm. Full range of motion of the elbow. Neurologic: Gross sensation is intact across the left arm by soft touch. Medical Decision & Procedures ED Course Patient was educated regarding today's findings. Conservative care measures were discussed. She was reassured that her symptoms are likely muscular in nature and not bone related. Possibility of rotator cuff injury was discussed. Start with Tylenol and Motrin every 6 hours as needed for mild discomfort. Prescription was provided for small amount 5 mg to be used for more severe pain. Driving precautions were given. She may return to work with a 25 pound maximum lift. Return to normal work on . If symptoms persist, she should follow up with her PCP for reevaluation. Gentle motion daily. Ice intermittently for 2 more days and then use moist heat. I think that her intermittent neurologic symptoms are likely related to muscle spasm of the trapezius. Return to the ED for any acute changes. Medical Decision Possibility of rotator cuff injury, AC joint arthropathy, labral tear, biceps tendon injury, glenohumeral arthropathy, cervical radiculopathy, and muscle strain were considered among others. Impression Primary Impression: Strain of left trapezius muscle Departure Information Dispostion Home / Self-Care Condition FAIR Prescriptions Hydrocodone/Acetaminophen 5MG/325MG ([place] 5MG/325MG) Tab 1-2 TABLET PO Q6H Y for Pain, #10 TAB For Initial Treatment Prov: Jeremías Garcia,P.A. 05/12/17 Forms HOME CARE DOCUMENTATION FORM, TYLENOL USE, IMPORTANT VISIT INFORMATION Patient Instructions My [facility] Additional Instructions Gentle stretching daily Ice intermittently 2 more days, then use moist heat Aleve 2 tablets twice a day with food Supplement with Tylenol every 6 hours as needed for breakthrough pain [place] one to 2 tablets every 6 hours as needed for severe pain-no driving Maximum lift of 25 pounds through Sunday Symptoms continue on , follow-up with your primary care doctor for reevaluation and a physical therapy referral Return to the ED for any acute changes Problem Qualifiers Primary Impression: Strain of left trapezius muscle Encounter type: initial encounter Qualified Codes: S46.812A - Strain of other muscles, fascia and tendons at shoulder and upper arm level, left arm, initial encounter
== END 2017-05-12 13:03 | disposition home or self-care (01) ==
LOC: C.EDB 12:04 → C.EDD 13:03
DX: S46.812A Strain of other muscles, fascia and tendons at shoulder and upper arm level, left arm, initial encounter (principal); X50.0XXA Overexertion from strenuous movement or load, initial encounter; Y99.0 Civilian activity done for income or pay; F32.9 Major depressive disorder, single episode, unspecified; E05.90 Thyrotoxicosis, unspecified without thyrotoxic crisis or storm; Z80.9 Family history of malignant neoplasm, unspecified; Z79.3 Long term (current) use of hormonal contraceptives

== ENCOUNTER → 2017-05-16 | Outpatient (CLI) | payer OTHER, BC ==
[~2017-05-16] MED LIST changes: +BCPILLS PO; +BUSP1TAB46 PO; +CYCL10TA6 PO; +HYDR-5688 PO; +IBUP-103 PO; -PRENTAB26 PO
--- NOTE | 2017-05-16 14:33 | DIAGNOSTIC IMAGING REPORT ---
LEFT SHOULDER MIN 2 VIEWS ROUTINE HISTORY: 26-year-old female presents with acute left shoulder pain status post injury. COMPARISON: Chest radiograph 01/24/2016. TECHNIQUE: 3 views of the left shoulder. FINDINGS: No acute fracture, dislocation or significant degenerative changes. AC joint also appears normal. Imaged left lung cornejo are clear. No radiopaque foreign body. IMPRESSION: No fracture or dislocation of the left shoulder. Electronically signed by: Jared Nichole 05/16/2017 2:31 PM Dictated Date/Time: 05/16/2017 2:29 PM
== END ==
LOC: C.RAD1850 14:12
PROVIDERS: ATTEND Preventive Medicine Occupational Medicine
DX: M62.838 Other muscle spasm (principal)

== ENCOUNTER 2017-05-19 23:07 | Emergency (ER) | payer OTHER, BC ==
[~2017-05-19] VITALS: Ht 154.9 cm; Wt 62.1 kg
[~2017-05-19 23:07] MED LIST changes: -ACET-1256 PO; -BUSP1TAB46 PO; -CYCL10TA6 PO; -IBUP-103 PO
[2017-05-19 23:11] VITALS: TEMP 36.6; Ht 154.9 cm; Wt 62.1 kg
[2017-05-19] MEDS ORDERED: IBUP-103 PO (23:54)
--- NOTE | 2017-05-19 23:55 | EMERGENCY ROOM VISIT NOTE ---
History First contact with patient: 23:15 Chief Complaint: SHOULDER PAIN Stated Complaint: L SHOULDER PAIN BACK PAIN History of Present Illness The patient is a 26 year old female who presents to the Emergency Room with complaints of left shoulder pain. The patient had an injury at work about 11 days ago. 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 She states that she was seen here and initially no x-rays were done. She was then seen at her primary care provider's office and they performed x- rays. She does not know the results of these. She states the shoulder feels numb and she has a feeling of pins and needles and arm. She has difficulty lifting the shoulder. She was prescribed hydrocodone and has been taking this only at night to sleep. She's been taking ibuprofen as well which gives her some relief. She rates her overall discomfort a 7/10. She states she is having difficulty working due to the pain. Review of Systems A complete 6 point review of systems was reviewed with the patient with pertinent positives and negatives as per history of present illness. All else were negative. Past Medical/Surgical History Medical Problems: (1) Anemia (2) Yuri Muniz contractions (3) Depression (4) Hyperthyroidism (5) Intrauterine (6) Normal labor (7) Ovarian cyst (8) with 38 completed weeks gestation (9) Vaginal delivery Family History Malignancy Social History Smoking Status: Former Smoker Alcohol Use: none Drug Use: none Marital Status: in relationship Housing Status: lives with significant other Occupation Status: employed Current/Historical Medications Scheduled Control Pills ( Control Pills), 1 TAB PO DAILY Ibuprofen Tab (Advil), 400 MG PO AMPM Scheduled PRN Hydrocodone/Acetaminophen 5MG/325MG ([place] 5MG/325MG), 1-2 TABLET PO Q6H PRN for Pain Allergies Coded Allergies: Nitrofurantoin (Verified Allergy, Mild, BLISTERS IN MOUTH, 02/09/17) SWELLING Physical Exam Vital Signs Date Time Temp Pulse Resp B/P (MAP) Pulse Ox O2 Delivery O2 Flow Rate FiO2 05/20/17 00:07 89 18 120/89 96 05/19/17 23:11 36.6 89 18 120/89 96 Room Air Physical Exam VITALS: Vitals are noted on the nurse's note and reviewed by myself. Vital signs stable. GENERAL: This is a 26-year-old female, in no acute distress, nondiaphoretic, well-developed well-nourished. HEART: Regular rate and rhythm without murmurs gallops or rubs. LUNGS: Clear to auscultation bilaterally without wheezes, rales or rhonchi. No retractions or accessory muscle use. MUSCULOSKELETAL: There is tenderness to palpation over the posterior left shoulder. Full passive range of motion of the shoulder. Decreased active range of motion of the shoulder. Strength 5/5 in the upper extremity. NEURO: Patient was alert and oriented to person place and time. Normal sensation to light and sharp touch. Medical Decision & Procedures Medical Decision Differential diagnosis includes fracture, contusion, sprain, rotator cuff injury , among others. The patient was evaluated as above. Previous records were reviewed. The patient was seen here in the emergency department previously. She was also seen by a Workmen's Compensation provider and had a negative x-ray as an outpatient. She may have a rotator cuff injury and will need to follow-up with orthopedics for further evaluation. She was given a referral and a few days off work. Conservative measures were discussed with the patient. She verbalized understanding of my assessment and treatment plan was discharged home in good condition. Impression Primary Impression: Left shoulder pain Departure Information Dispostion Home / Self-Care Condition GOOD Referrals Kina Chen,C.R.N.P. (PCP) Abilio Mack, DO Patient Instructions My [facility] Additional Instructions You have been treated in the Emergency Department for Shoulder Pain. For pain control, you can use the following [id number] medicines (if >12 yo): - Regular strength (325mg/tab) Tylenol (acetaminophen) 2 tabs every 4-6 hours as needed. Do not exceed 12 tablets in a 24 hour period. Avoid taking more than 4 grams (4000 mg) of Tylenol per day. This includes any other sources of acetaminophen you may take on a regular basis. - Regular strength (200 mg/tab) Advil (ibuprofen) 1-2 tabs every 4-6 hours as needed. Do not exceed a dose of 3200 mg per day. If this is a recent injury (<24 hrs), ice can be applied to the area of pain for the first 3 days to help decrease pain and inflammation. Wear the sling during the day, but take it off a few times a day to move the arm around. Return to the Emergency Department if your current symptoms worsen despite treatment course outlined above, or if you develop any of the following symptoms : intractable pain despite aforementioned treatment course or new onset of numbness or tingling of the arm. Problem Qualifiers Primary Impression: Left shoulder pain Chronicity: acute Qualified Codes: M25.512 - Pain in left shoulder
[2017-05-20 00:07] VITALS: BP 120/89; PULSE 89; O2SAT 96
== END 2017-05-20 00:08 | disposition home or self-care (01) ==
LOC: C.EDB 23:08 → C.EDC 05-20 00:08
DX: M25.512 Pain in left shoulder (principal); Y99.0 Civilian activity done for income or pay; X50.0XXD Overexertion from strenuous movement or load, subsequent encounter; Y92.89 Other specified places as the place of occurrence of the external cause; D64.9 Anemia, unspecified; F32.9 Major depressive disorder, single episode, unspecified; E05.90 Thyrotoxicosis, unspecified without thyrotoxic crisis or storm; Z80.9 Family history of malignant neoplasm, unspecified; Z87.891 Personal history of nicotine dependence; Z79.3 Long term (current) use of hormonal contraceptives

== ENCOUNTER 2017-07-27 09:54 | Emergency (ER) | payer BC, OTHER ==
[~2017-07-27] VITALS: Ht 154.9 cm; Wt 60.3 kg
[~2017-07-27 09:54] MED LIST changes: +IBUP-103 PO
[2017-07-27 09:56] VITALS: TEMP 36.7; Ht 154.9 cm; Wt 60.3 kg
[2017-07-27] MEDS ORDERED: ACET-1256 PO (10:32)
[2017-07-27] MEDS ORDERED: BUSP1TAB46 PO (10:32)
[2017-07-27] MEDS ORDERED: CYCL10TA6 PO ×2 (10:43→11:15)
[2017-07-27] MEDS ORDERED: HYDR-5688 PO ×3 (10:43→12:20)
--- NOTE | 2017-07-27 10:44 | EMERGENCY ROOM VISIT NOTE ---
ED Visit Note First contact with patient: 10:07 CHIEF COMPLAINT: Left low back pain 2-3 days HISTORY OF PRESENT ILLNESS: Patient is otherwise healthy 26-year-old white female presents to the emergency department for evaluation of left-sided low back pain that started about 2 or 3 days ago. She describes a constant, aching pain in the left low back that is worse with certain movements. She presently rates her discomfort a 5/10. She has been taking Tylenol, ibuprofen and applying a heating pad to the area, that her symptoms are not improving. She works as a FIELD MARKETING COORDINATOR and has 3 young children at home that she cares for, but she does not recall any specific injury, there has been no fall or direct trauma prior to the onset of her pain. She does not have a history of any significant back problems, states that she used to see the chiropractor for adjustments, but has not been there for some time. She denies any radiation of the pain into her buttocks, hips or legs. No numbness, tingling or weakness of the lower extremities. No bowel or bladder incontinence. She denies any radiation of the pain into the abdomen, no associated nausea or vomiting. She denies symptoms. She does have a history of UTIs and kidney infections. REVIEW OF SYSTEMS: Review of systems as per HPI. All other systems reviewed were negative. 10 systems reviewed. PMH: Electronic medical records are reviewed and summarized as above/below. See Problem List. SOCIAL HISTORY: Patient lives at home with her family. Employed. She does not smoke. PHYSICAL EXAM: Vital Signs: Reviewed Nurse's notes. CONSTITUTIONAL: Patient is a well-appearing 26-year-old white female who is awake and alert and sitting semiupright on the gurney in no acute distress. She does have slight discomfort with position changes. NECK: No bruits auscultated. Supple without lymphadenopathy. No thyromegaly. No meningeal signs. Full active range of motion without discomfort. CARDIOVASCULAR: Regular rate and rhythm, with normal S1 and S2, no murmur or gallop or rub is heard. No carotid bruits auscultated. No JVD. Peripheral pulses easily palpable. RESPIRATORY: Breath sounds equal and clear to auscultation without wheezes, rales, or rhonchi heard. Full and equal chest expansion without accessory muscle use or retractions. ABDOMEN: Bowel sounds are present. Abdomen is soft, nontender and nondistended. INTEGUMENTARY: No lesions or rash, normal skin turgor. LYMPH: No lymphadenopathy. SPINE: Examination of the patient's back does not demonstrate any ecchymosis, abrasions or outward signs of trauma. No erythema, increased warmth or induration. Patient has no midline discomfort to palpation over the lumbar spinous processes. She does have some reproducible tenderness in the left- sided paraspinous musculature. There is no pain over the SI joint or the sciatic notch. She has increased pain with range of motion including rotation and flexion. EXTREMITIES: Leg lengths are symmetrical. Negative logroll bilaterally. Normal strength including dorsi-flexion and plantar flexion of the great toes and ankles and flexion and extension of the knees and flexion of the hips. Negative bilateral straight leg raise testing. Lower extremity DTRs are equal and symmetrical bilaterally. Distal pulses are easily palpable. Sensation light touch is intact over the lower extremities bilaterally. EMERGENCY DEPARTMENT COURSE: The patient was seen and assessed as above. Her old records were reviewed. Patient was reviewed in the [facility] Prescription Drug Monitoring Program, and there were no red flags noted. Urine sample was collected, dip was completely clear, test was negative. The patient's pain appears to be musculoskeletal in nature. Urinalysis is not indicative of UTI, pyelonephritis, and I do not suspect renal colic. Patient was encouraged to continue conservative care including ibuprofen and heat. She was given a small prescription for [place] and Flexeril to use for severe pain. I do not suspect acute cord compression or cauda equina syndrome. Given the lack of trauma was not felt that radiographs were indicated. Medication reconciliation: I attest that I have personally reviewed the patient' s current medication list. Blood pressure screening : Patient was found to have normal blood pressure on screening and does not require follow-up. Initial prescriptions were sent to [facility], prior to patient leaving our ED, [facility] contacted the ED that they were out of the [place]. Patient was notified and prescriptions were sent to [facility]. Initial prescriptions were cancelled. Later were contacted by the [facility], that they were also out of the [place]. A written prescription for [place] was provided that the patient can return to the emergency department to obtain intake to a pharmacy of her choice. Problem List Medical Problems: (1) Abdominal cramping Status: Resolved (2) Abdominal cramping, bilateral lower quadrant Status: Resolved (3) Abdominal pain Status: Resolved (4) Abdominal pain Status: Resolved (5) Acute bronchitis Status: Resolved (6) Acute gastritis Status: Resolved (7) Anemia Status: Resolved (8) Anemia Status: Chronic (9) Anemia of Status: Resolved (10) Back strain Status: Resolved (11) Back strain Status: Resolved (12) Biliary colic Status: Resolved (13) Yuri Muniz contractions Status: Resolved (14) Cholelithiasis Status: Resolved (15) Cholelithiasis Status: Resolved (16) Constipation Status: Resolved (17) Depression Status: Chronic (18) Flank pain Status: Resolved (19) GI bleed Status: Resolved (20) GI bleed Status: Resolved (21) Headache Status: Resolved (22) Headache Status: Resolved (23) Hyperthyroidism Status: Chronic (24) Insect bite Status: Resolved (25) Intrauterine Status: Resolved (26) labor Status: Resolved (27) Left shoulder pain Status: Resolved (28) Leukocytosis Status: Resolved (29) Low back pain Status: Resolved (30) Miscarriage Status: Resolved (31) Nausea & vomiting Status: Resolved (32) Nausea & vomiting Status: Resolved (33) Normal labor Status: Resolved (34) Ovarian cyst Status: Resolved (35) Pleurisy Status: Resolved (36) Pleuritic chest pain Status: Resolved (37) Status: Resolved (38) with 38 completed weeks gestation Status: Resolved (39) Pyelonephritis Status: Resolved (40) Sore throat Status: Resolved (41) Spasm of back muscles Status: Resolved (42) Sprain of knee Status: Resolved (43) Strain of left trapezius muscle Status: Resolved (44) Strain of left trapezius muscle Status: Resolved (45) Thoracic myofascial strain Status: Resolved (46) Threatened miscarriage Status: Resolved (47) Threatened miscarriage Status: Resolved (48) Upper respiratory infection Status: Resolved (49) Urinary tract infection Status: Resolved (50) UTI (urinary tract infection) Status: Resolved (51) UTI (urinary tract infection) Status: Resolved (52) UTI (urinary tract infection) Status: Resolved (53) UTI (urinary tract infection) Status: Resolved (54) Vaginal delivery Status: Resolved (55) Vaginal discharge Status: Resolved (56) Viral gastritis Status: Resolved Current/Historical Medications Scheduled Acetaminophen (Tylenol), 1,000 MG PO Q6 Control Pills ( Control Pills), 1 TAB PO DAILY Buspirone Hcl (Buspirone Hcl), 7.5 MG PO BID Ibuprofen Tab (Advil), 400 MG PO AMPM Scheduled PRN Cyclobenzaprine Hcl (Flexeril), 10 MG PO TID PRN for Muscle Spasms Hydrocodone/Acetaminophen 5MG/325MG ([place] 5MG/325MG), 1-2 TABLETS PO Q4 PRN for Pain Allergies Coded Allergies: Nitrofurantoin (Verified Allergy, Mild, BLISTERS IN MOUTH, 02/09/17) SWELLING Vital Signs Date Time Temp Pulse Resp B/P (MAP) Pulse Ox O2 Delivery O2 Flow Rate FiO2 07/27/17 11:14 64 20 106/72 99 07/27/17 09:56 36.7 79 18 120/74 98 Room Air Departure Information Impression Primary Impression: Left low back pain Prescriptions Hydrocodone/Acetaminophen 5MG/325MG ([place] 5MG/325MG) Tab 1-2 TABLETS PO Q4 Y for Pain, #15 TAB For Initial Treatment Prov: Alicia Parks PA 07/27/17 Cyclobenzaprine Hcl (FLEXERIL) 10 Mg Tab 10 MG PO TID Y for Muscle Spasms, #20 TAB Prov: Alicia Parks PA 07/27/17 Referrals Kina ChenC.R.N.PSagrario (PCP) Patient Instructions [facility] Additional Instructions Hydrocodone/Acetaminophen ([place]) 5/325 mg: Take 1-2 pills every four hours for breakthrough pain. Avoid alcohol, operating machinery or dangerous equipment, working on ladders or roofs, DRIVING, or situations where being under the influence may be dangerous. It is recommended to use an bynx-kxg-[id number] stool softener such as Colace, 100mg twice daily while taking this medication to avoid constipation. Cyclobenzaprine (Flexeril) 10 mg: Take 1 pills 3 times daily as needed for muscle spasms.. Avoid alcohol, operating machinery or dangerous equipment, working on ladders or roofs, DRIVING, or situations where being under the influence may be dangerous. Ibuprofen(Motrin, Advil) may be used for fever or pain. Use 600mg every six hours as needed. Take with food. Avoid using more than 2400mg in a 24 hour period. Do not use 2400mg per day for more than three consecutive days without physician direction. Prolonged inappropriate use can lead to stomach upset or ulcers. This medication can be taken if you need to drive, work, or perform activities which may be dangerous when taking narcotic pain medication. (AND/OR) Acetaminophen(Tylenol) may be used for fever or pain. Use 1000mg every six hours as needed. Avoid using more than 3000mg in a 24 hour period. This medication can be taken if you need to drive, work, or perform activities which may be dangerous when taking narcotic pain medication. Rest and avoid heavy lifting until your symptoms resolve and then gradually return to full activity. A good rule of thumb is if it hurts your back to perform a certain activity, then it should be avoided until you are healthy again. A heating pad, warm compresses, or a hot shower may help with tight muscles and can be done several times a day as needed. Continue current medications. Return to the ER immediately for any numbness, tingling, severe pain, loss of control of your bowels or bladder, inability to walk, or as needed. Follow up with your primary care physician within 3-5 days for a recheck of your current condition.
[2017-07-27 11:14] VITALS: BP 106/72; PULSE 64; O2SAT 99
--- NOTE | 2017-07-27 11:18 | Pharmacy Progress Note ---
ED Pharmacist Progress Note Date of Service: Jul 27, 2017. [facility] called stating no norco 5/325 in stock. After discussing with provider, GILDARDO Louie, prescription will be cancelled and resent to another pharmacy. Relayed order to cancel current prescription to [facility].
== END 2017-07-27 11:15 | disposition home or self-care (01) ==
LOC: C.EDB 09:55 → C.EDA 11:15
DX: M54.5 Low back pain (principal); F32.9 Major depressive disorder, single episode, unspecified; N83.209 Unspecified ovarian cyst, unspecified side; Z87.440 Personal history of urinary (tract) infections; Z86.19 Personal history of other infectious and parasitic diseases; E05.90 Thyrotoxicosis, unspecified without thyrotoxic crisis or storm; Z79.899 Other long term (current) drug therapy; Z88.8 Allergy status to other drugs, medicaments and biological substances

== ENCOUNTER 2017-10-02 19:04 | Emergency (ER) | payer BC ==
[~2017-10-02] VITALS: Ht 154.9 cm; Wt 62.4 kg
[~2017-10-02 19:04] MED LIST changes: +ACET-1256 PO; +BUSP1TAB46 PO; +CYCL10TA6 PO
[2017-10-02 19:06] VITALS: BP 120/78; PULSE 87; TEMP 36.7; O2SAT 100; Ht 154.9 cm; Wt 62.4 kg
[2017-10-02] MEDS ORDERED: PRED20TA2 PO (19:20)
[2017-10-02] MEDS ORDERED: HYDR-5688 PO (19:20)
[2017-10-02] MEDS ORDERED: CYCL10TA6 PO (19:20)
--- NOTE | 2017-10-02 19:21 | EMERGENCY ROOM VISIT NOTE ---
ED Visit Note First contact with patient: 19:10 CHIEF COMPLAINT: "Pulled muscle and back". HISTORY OF PRESENT ILLNESS: This 26 female patient presents to the emergency department via private vehicle accompanied by male and small child complaining of pain in the low back which began from 7 PM yesterday when she was lifting a heavy couch. The pain was gradual in onset, is now constant and worse with movement. The patient notes the pain as sharp and a 8/10. The patient has taken Tylenol and ibuprofen as well as alternating heat and ice relief of the pain. The patient denies any loss of control of their bowel or bladder functions. There has been no leg numbness or weakness, and no change in sensation. No nausea or vomiting or abdominal pain. No chest pain or shortness of breath. The patient has had prior back ailments. No dysuria or increased urinary frequency. REVIEW OF SYSTEMS: A review of systems was performed with positives and pertinent negatives listed in the history of present illness. All other systems were reviewed and are negative. ALLERGIES: Nitrofurantoin MEDICATIONS: As noted below PMH: Previous lumbar strain SOCIAL HISTORY: Patient lives locally PHYSICAL EXAM: VITALS: Vitals are noted on the nurse's note and reviewed by myself. Vital signs stable. GENERAL: 26-year-old female, in no acute distress, nondiaphoretic, well- developed well-nourished. SKIN: The skin was without rashes, erythema, edema, or bruising. Capillary refill less than 2 seconds. HEART: Regular rate and rhythm without murmurs gallops or rubs. LUNGS: Clear to auscultation bilaterally without wheezes, rales or rhonchi. MUSCULOSKELETAL: No muscle atrophy, erythema, or edema noted of the back. There is no tenderness over the lumbar spinous processes. There is are tenderness over the paraspinous muscles on the right paraspinous musculature region of the lumbar spine. There is no tenderness over the thoracic spine or paraspinous muscles. There are no muscle spasms present. NEURO: Deep tendon reflexes 2+ in the lower extremities. Strength 5/5 and equal in the bilateral lower extremities. EMERGENCY DEPARTMENT COURSE: Patient was seen and evaluated as above. She presents to us today with what appears to be a strain of the lumbar region. This is verified on physical examination. She is nontoxic on exam. Her vital signs are stable. She is afebrile. There is no evidence of emergent process. Previous visit elicits that she does have a history of strain of the lumbar region was treated with [place] tablets as well as Flexeril. She notes that she also had to have prednisone added to this as the pain persisted. The patient was educated upon management and felt stable for outpatient management on the same medication she was prescribed previously with success. The WEB SITE ADMINISTRATOR was searched and no red flags were identified. The patient is to follow with her family doctor. They were educated upon management, educated upon worrisome symptoms in which to return, had questions answered at discharge, and were discharged home in good condition. In evaluation treatment this patient the following differential diagnoses were entertained: Lumbar strain, cauda equina syndrome, UTI, pyelonephritis, among others. Problem List Medical Problems: (1) Abdominal cramping Status: Resolved (2) Abdominal cramping, bilateral lower quadrant Status: Resolved (3) Abdominal pain Status: Resolved (4) Abdominal pain Status: Resolved (5) Acute bronchitis Status: Resolved (6) Acute gastritis Status: Resolved (7) Anemia Status: Resolved (8) Anemia Status: Chronic (9) Anemia of Status: Resolved (10) Back strain Status: Resolved (11) Back strain Status: Resolved (12) Biliary colic Status: Resolved (13) [place] Muniz contractions Status: Resolved (14) Cholelithiasis Status: Resolved (15) Cholelithiasis Status: Resolved (16) Constipation Status: Resolved (17) Depression Status: Chronic (18) Flank pain Status: Resolved (19) GI bleed Status: Resolved (20) GI bleed Status: Resolved (21) Headache Status: Resolved (22) Headache Status: Resolved (23) Hyperthyroidism Status: Chronic (24) Insect bite Status: Resolved (25) Intrauterine Status: Resolved (26) labor Status: Resolved (27) Left shoulder pain Status: Resolved (28) Leukocytosis Status: Resolved (29) Low back pain Status: Resolved (30) Miscarriage Status: Resolved (31) Nausea & vomiting Status: Resolved (32) Nausea & vomiting Status: Resolved (33) Normal labor Status: Resolved (34) Ovarian cyst Status: Resolved (35) Pleurisy Status: Resolved (36) Pleuritic chest pain Status: Resolved (37) Status: Resolved (38) with 38 completed weeks gestation Status: Resolved (39) Pyelonephritis Status: Resolved (40) Sore throat Status: Resolved (41) Spasm of back muscles Status: Resolved (42) Sprain of knee Status: Resolved (43) Strain of left trapezius muscle Status: Resolved (44) Strain of left trapezius muscle Status: Resolved (45) Thoracic myofascial strain Status: Resolved (46) Threatened miscarriage Status: Resolved (47) Threatened miscarriage Status: Resolved (48) Upper respiratory infection Status: Resolved (49) Urinary tract infection Status: Resolved (50) UTI (urinary tract infection) Status: Resolved (51) UTI (urinary tract infection) Status: Resolved (52) UTI (urinary tract infection) Status: Resolved (53) UTI (urinary tract infection) Status: Resolved (54) Vaginal delivery Status: Resolved (55) Vaginal discharge Status: Resolved (56) Viral gastritis Status: Resolved Current/Historical Medications Scheduled Acetaminophen (Tylenol), 1,000 MG PO Q6 Control Pills ( Control Pills), 1 TAB PO DAILY Buspirone Hcl (Buspirone Hcl), 7.5 MG PO BID Cyclobenzaprine Hcl (Flexeril), 10 MG PO TID Ibuprofen Tab (Advil), 400 MG PO AMPM Prednisone (Prednisone Tab), 0 PO DAILY Scheduled PRN Hydrocodone/Acetaminophen 5MG/325MG ([place] 5MG/325MG), 1-2 TABLET PO Q6 PRN for Pain Allergies Coded Allergies: Nitrofurantoin (Verified Allergy, Mild, BLISTERS IN MOUTH, 02/09/17) SWELLING Vital Signs Date Time Temp Pulse Resp B/P (MAP) Pulse Ox O2 Delivery O2 Flow Rate FiO2 10/02/17 19:06 36.7 87 16 120/78 100 Room Air Departure Information Impression Primary Impression: Strain of lumbar region Dispostion Home / Self-Care Condition GOOD Prescriptions Prednisone (Prednisone Tab) 20 Mg Tab 0 PO DAILY, #14 TAB 3 TABS DAILY FOR 2 DAYS, THEN 2 TABS DAILY FOR 2 DAYS, THEN 1 TAB DAILY FOR 2 DAYS, THEN 1/2 TAB DAILY FOR 2 DAYS. Prov: José Luis Gonsalez PA-C 10/02/17 Cyclobenzaprine Hcl (FLEXERIL) 10 Mg Tab 10 MG PO TID for 6 Days, #18 TAB Prov: José Luis Gonsalez PA-C 10/02/17 Hydrocodone/Acetaminophen 5MG/325MG ([place] 5MG/325MG) Tab 1-2 TABLET PO Q6 Y for Pain, #15 TAB For Initial Treatment Prov: José Luis Gonsalez PA-C 10/02/17 Referrals Kina Chen C.R.N.P. (PCP) Patient Instructions My [facility] Additional Instructions You have been treated in the Emergency Department for Back Pain. You have received pain medicine in the emergency department which impairs your ability to operate a vehicle. It is illegal for you to drive after receiving these medicines. You have been prescribed Prednisone. This is an anti-inflammatory medicine to be used to help minimize your symptoms. You should take the COMPLETE course of the medication. You have been prescribed Oxy IR to be used for pain control. This is a narcotic medication. You cannot drive or consume alcohol while on this medicine. This medicine should only be used for pain that cannot be controlled with over-the- counter pain medicines. You have been prescribed Flexeril (cyclobenzaprine) 1 tabs orally, three times per day. Do NOT exceed 30 mg (3 tabs) per day. Take your first dose at bedtime as it can make you drowsy. Always take all medications as prescribed. For pain control, you can use the following [id number] medicines (if >12 yo): NO TYLENOL WITH THE [place] PLEASE - Regular strength (200 mg/tab) Advil (ibuprofen) 1-2 tabs every 4-6 hours as needed. Do not exceed a dose of 3200 mg per day. If this is an acute injury, ice can be applied to the area of pain for the first 3 days to help decrease pain and inflammation. After the first 3 days, a heating pad can be used over the area for continued soothing relief. You should schedule a follow-up appointment in 2-3 days with your Primary Care Provider for further evaluation and treatment of your back pain. Return to the Emergency Department if your current symptoms worsen despite treatment course outlined above, or if you develop any of the following symptoms : intractable pain despite aforementioned treatment course, loss of control of your bowel or bladder, numbness or tingling in your groin, or development of a fever.
== END 2017-10-02 19:30 | disposition home or self-care (01) ==
LOC: C.EDB 19:04 → C.EDD 19:30
DX: S33.5XXA Sprain of ligaments of lumbar spine, initial encounter (principal); X50.0XXA Overexertion from strenuous movement or load, initial encounter; D64.9 Anemia, unspecified; F32.9 Major depressive disorder, single episode, unspecified; E05.90 Thyrotoxicosis, unspecified without thyrotoxic crisis or storm; Z87.440 Personal history of urinary (tract) infections; Z79.3 Long term (current) use of hormonal contraceptives; Z79.899 Other long term (current) drug therapy

== ENCOUNTER 2017-10-08 19:14 | Emergency (ER) | payer BC ==
[~2017-10-08] VITALS: Ht 154.9 cm; Wt 61.5 kg
[~2017-10-08 19:14] MED LIST changes: +PRED20TA2 PO
[2017-10-08 19:26] VITALS: BP 120/80; TEMP 36.6; Ht 154.9 cm; Wt 61.5 kg
[2017-10-08] MEDS ORDERED: NORCO 5/325MG HOME PACK PO ONE (21:00)
[2017-10-08 21:26] VITALS: PULSE 98; O2SAT 99
--- NOTE | 2017-10-09 01:55 | EMERGENCY ROOM VISIT NOTE ---
History First contact with patient: 20:43 Chief Complaint: BACK PAIN Stated Complaint: BACK PAIN History of Present Illness The patient is a 26 year old female who presents to the Emergency Room with complaints of persistent right lower back pain. The patient reports that she was seen in the emergency department last week with similar symptoms. She has an appointment tomorrow with her PCP at [facility]. The patient reports that she ran out of her an 8 out of 10. She denies any pain extending into the lower extremities, bladder/bowel incontinence or lower extremity weakness. She denies any re-to her back since her last ER visit. She denies any urinary symptoms, abdominal pain, constipation or diarrhea. Review of Systems 10 system review was performed and was negative except for pertinent positives and negatives as indicated in history of present illness Past Medical/Surgical History Medical Problems: (1) Abdominal cramping (2) Abdominal cramping, bilateral lower quadrant (3) Abdominal pain (4) Abdominal pain (5) Acute bronchitis (6) Acute gastritis (7) Anemia (8) Anemia (9) Anemia of (10) Back strain (11) Back strain (12) Biliary colic (13) Yuri Muniz contractions (14) Cholelithiasis (15) Cholelithiasis (16) Constipation (17) Depression (18) Flank pain (19) GI bleed (20) GI bleed (21) Headache (22) Headache (23) Hyperthyroidism (24) Insect bite (25) Intrauterine (26) labor (27) Left shoulder pain (28) Leukocytosis (29) Low back pain (30) Miscarriage (31) Nausea & vomiting (32) Nausea & vomiting (33) Normal labor (34) Ovarian cyst (35) Pleurisy (36) Pleuritic chest pain (37) (38) with 38 completed weeks gestation (39) Pyelonephritis (40) Sore throat (41) Spasm of back muscles (42) Sprain of knee (43) Strain of left trapezius muscle (44) Strain of left trapezius muscle (45) Thoracic myofascial strain (46) Threatened miscarriage (47) Threatened miscarriage (48) Upper respiratory infection (49) Urinary tract infection (50) UTI (urinary tract infection) (51) UTI (urinary tract infection) (52) UTI (urinary tract infection) (53) UTI (urinary tract infection) (54) Vaginal delivery (55) Vaginal discharge (56) Viral gastritis Family History Malignancy Social History Smoking Status: Current Every Day Smoker Alcohol Use: none Drug Use: none Marital Status: in relationship Housing Status: lives with significant other Occupation Status: employed Current/Historical Medications Scheduled Control Pills ( Control Pills), 1 TAB PO DAILY Buspirone Hcl (Buspirone Hcl), 7.5 MG PO BID Ibuprofen Tab (Advil), 400 MG PO AMPM Prednisone (Prednisone Tab), 0 PO DAILY Scheduled PRN Hydrocodone/Acetaminophen 5MG/325MG (Zortman 5MG/325MG), 1-2 TABLET PO Q6 PRN for Pain Physical Exam Vital Signs Date Time Temp Pulse Resp B/P (MAP) Pulse Ox O2 Delivery O2 Flow Rate FiO2 10/08/17 21:26 98 18 99 10/08/17 19:26 36.6 106 18 120/80 100 Room Air Physical Exam CONSTITUTIONAL: Healthy and well nourished. Alert and oriented X 3 with a flat affect. She does not appear in any acute distress. HEENT: Normocephalic, atraumatic. Pupils equal, round and reactive. NECK: Full active range of motion without discomfort. RESPIRATORY: Clear to auscultation bilaterally with no wheezing, crackles, rhonchi or stridor. CARDIOVASCULAR: Regular rate and rhythm with no murmurs, rubs or gallops. GASTROINTESTINAL: Bowel sounds present in all quadrants. Soft and nontender to palpation. MUSCULOSKELETAL: Examination shows generalized tenderness to palpation of the right lumbar paraspinous muscle. No palpable spasm. No significant focal tenderness through the SI joints. Negative logroll. Negative sitting straight leg raise. Pedal pulses are intact. INTEGUMENTARY: No rash or other significant dermatologic conditions noted. NEUROLOGIC: Lower extremities are sensory intact. Medical Decision & Procedures Medications Administered Medications (Trade) Dose Ordered Sig/Kelly Route Start Time Stop Time Status Last Admin Dose Admin Acetaminophen/ Hydrocodone Bitart (Zortman 5/325mg Home Pack) 1 homepack UD ONCE PO 10/08/17 21:00 10/08/17 21:01 DC 10/08/17 21:29 1 HOMEPACK ED Course Patient history and physical exam were performed. Nurse's notes were reviewed. I did review documentation from her ER visit on 10/02/17. She was provided prescriptions for Zortman, Flexeril and prednisone. The patient reports that she had decent pain relief until she ran out of her hydrocodone. The patient was provided a home pack of Zortman 5/325, dispensed #4. This should get her through until her family doctor's appointment tomorrow at 11 AM. The patient was advised that the emergency department does not provide chronic pain management, and this issue should be discussed with her PCP tomorrow. The patient voiced understanding of all discharge instructions, and rated her discomfort a 10 at the time of discharge. Medical Decision [place] Drug Monitoring Program Search Results: patient reviewed within database, no issues identified Medication Reconcilliation Current Medication List: was personally reviewed by me Blood Pressure Screening Patient's blood pressure: Normal blood pressure Impression Primary Impression: Lower back pain Departure Information Dispostion Home / Self-Care Condition GOOD Forms HOME CARE DOCUMENTATION FORM, IMPORTANT VISIT INFORMATION Patient Instructions My [facility] Additional Instructions Follow-up with your family doctor as scheduled for further reevaluation and management. Ibuprofen 600 mg every 6 hours. Take Zortman one tablet every 4-6 hours as needed for worse pain. Any additional prescription management must come from your family doctor. The emergency department does not provide chronic pain management or prescription management. Problem Qualifiers Primary Impression: Lower back pain Chronicity: acute Back pain laterality: unspecified Sciatica presence: without sciatica Qualified Codes: M54.5 - Low back pain
== END 2017-10-08 21:31 | disposition home or self-care (01) ==
LOC: C.EDB 19:15 → C.EDD 21:31
DX: M54.5 Low back pain (principal); F17.200 Nicotine dependence, unspecified, uncomplicated; Z79.3 Long term (current) use of hormonal contraceptives; Z79.1 Long term (current) use of non-steroidal anti-inflammatories (NSAID); Z80.9 Family history of malignant neoplasm, unspecified

== ENCOUNTER → 2017-10-09 | Outpatient (CLI) | payer BC ==
--- NOTE | 2017-10-09 16:12 | DIAGNOSTIC IMAGING REPORT ---
L-SPINE MIN 4 VIEWS ROUTINE HISTORY: Pain LOW BACK PAIN COMPARISON: None. FINDINGS: There is no fracture. No subluxation. Disc spaces are preserved. IMPRESSION: No fracture or subluxation within the lumbar spine. note is made of increased fecal load throughout the colon consistent with fecal stasis The above report was generated using voice recognition software. It may contain grammatical, syntax or spelling errors. Electronically signed by: Baljit Feldman M.D. 10/09/2017 4:11 PM Dictated Date/Time: 10/09/2017 4:09 PM
== END | disposition home or self-care (01) ==
LOC: C.RADPV 15:46
PROVIDERS: ATTEND Family Medicine
DX: M54.5 Low back pain (principal)

== ENCOUNTER 2017-12-16 12:19 | Emergency (ER) | payer BC, OTHER ==
[~2017-12-16] VITALS: Ht 154.9 cm; Wt 62.4 kg
[~2017-12-16 12:19] MED LIST changes: -ACET-1256 PO; -CYCL10TA6 PO
[2017-12-16 12:42] VITALS: TEMP 36.7; Ht 154.9 cm; Wt 62.4 kg
--- NOTE | 2017-12-16 14:29 | DIAGNOSTIC IMAGING REPORT ---
R ELBOW MIN 3 VIEWS ROUTINE CLINICAL HISTORY: 26 years-old Female presenting with fall; R elbow pain. TECHNIQUE: Frontal, oblique, and lateral views of the right elbow were obtained. COMPARISON: None. FINDINGS: No acute fracture or malalignment. No degenerative change. No elbow joint effusion. No radiographic soft tissue abnormality. IMPRESSION: No acute osseous injury of the right elbow. Electronically signed by: Domenico Shay M.D. 12/16/2017 2:27 PM Dictated Date/Time: 12/16/2017 2:27 PM
--- NOTE | 2017-12-16 14:30 | DIAGNOSTIC IMAGING REPORT ---
THORACIC SPINE 3 VIEWS ROUTINE CLINICAL HISTORY: 26 years-old Female presenting with fall; thoracic and lumbar back pain. TECHNIQUE: 3 views of the thoracic spine were obtained. COMPARISON: None. FINDINGS: Normal thoracic kyphosis. Vertebral bodies maintain normal height and alignment. Visualized portion of the cervical spine within normal limits. Intervertebral disc spaces preserved. No degenerative change. No compression deformity. No evidence of subluxation. No scoliosis. Visualized portion of the thorax normal. IMPRESSION: Normal thoracic spine. Electronically signed by: Domenico Shay M.D. 12/16/2017 2:28 PM Dictated Date/Time: 12/16/2017 2:28 PM
--- NOTE | 2017-12-16 14:32 | DIAGNOSTIC IMAGING REPORT ---
L-SPINE MIN 4 VIEWS ROUTINE CLINICAL HISTORY: 26 years-old Female presenting with same. TECHNIQUE: Frontal, bilateral oblique, lateral, and coned in lateral views of the lumbar spine were obtained. COMPARISON: 10/09/2017. FINDINGS: Mild levocurvature of the lumbar spine centered at L3. Otherwise normal lumbar lordosis. Vertebral bodies maintain normal height and alignment. Intervertebral disc spaces preserved. No osseous neural foraminal narrowing. No compression deformity. No subluxation. No pars defect. Moderate stool burden primarily in the transverse and right colon. Mild gaseous distention of small bowel, nonspecific. No gross pneumoperitoneum. IMPRESSION: 1. Mild levoscoliosis. No evidence of acute osseous injury of the lumbar spine. 2. Moderate stool burden in the right and transverse colon. Electronically signed by: Domenico Shay M.D. 12/16/2017 2:30 PM Dictated Date/Time: 12/16/2017 2:29 PM
[2017-12-16] MEDS ORDERED: KETO10TA PO (14:53)
[2017-12-16 15:00] VITALS: BP 103/82; PULSE 69; O2SAT 100
--- NOTE | 2017-12-18 09:51 | EMERGENCY ROOM VISIT NOTE ---
ED Visit Note First contact with patient: 12:57 Chief Complaint: I just fell and hurt my right elbow and back. History of Present Illness: Ms. Jackson is a 26-year-old white female who ambulates into the ED following a fall complaining of right posterior elbow pain , thoracic and lumbar back pain. Patient reports she was walking out of a convenience store, slipped and fell. She reports she fell backwards and her elbow struck the ground and her back struck a step. She reports before the fall she was not experiencing any lightheadedness or dizziness, the time of the fall she did not strike her head or have a loss of consciousness and since the injury she denies all signs of head injury. Currently she is complaining of posterior right elbow pain over both the medial and lateral epicondylar area. She describes this pain as a sharp sensation. She rates her discomfort 8/10. Her pain is nonradiating. Her pain worsens with the last few degrees of flexion and extension and pronation and supination of the forearm. She has not identified any alleviating factors related to the pain. She has not taken any medications for pain prior to arrival at the hospital. She denies any previous significant injuries or surgeries to the elbow. Currently she is complaining of back pain from the T9 through L3 area. She also describes this as a sharp but also a throbbing sensation. She rates this discomfort 8/10. The pain is nonradiating. The pain worsens with palpation in all movements of the lumbar spine. She has not identified any alleviating factors related to the pain and as previously mentioned has not taken any pain medication. With her symptoms she denies neck pain, chest pain, shortness of breath, abdominal pain, nausea, vomiting, upper and lower extremity weakness/numbness/ tingling. Review of Systems: As noted above in history of present illness. 8 body systems were reviewed and found to be negative as noted above. Past Medical History: Rhonchi at his, gastritis, anemia, chronic back pain, biliary colic, cholelithiasis, depression, constipation, GI bleed, hyperthyroidism, miscarriage, pleurisy, ovarian cyst, pyelonephritis. Current Medications: Buspirone Allergies to Medications: Nitrofurantoin and control. Social History: Physical Examination: Vital Signs: Date Time Temp Pulse Resp B/P (MAP) Pulse Ox O2 Delivery O2 Flow Rate FiO2 2/4/18 15:00 69 16 103/82 100 12/16/17 12:42 36.7 80 16 122/81 99 Room Air GENERAL: 26-year-old female in mild to moderate distress due to pain, nontoxic- appearing, afebrile and hemodynamically stable. NEUROLOGICAL: Awake, alert and oriented to person, place and time. Answering questions appropriately and following commands. Normal gait. Good hand eye coordination. SKIN: Warm, dry and pink. No soft tissue eruptions or trauma noted. HEENT: Atraumatic and normocephalic. Skull: No bony deformity, bony crepitus, swelling or ecchymosis. No raccoon's eyes or campos signs. No drainage from the ears of the nostril; no hemotympanum. No obvious facial trauma. BACK: No tenderness over the bony cervical spine. Full range of motion of the cervical spine. Patient's has mild to moderate tenderness over the T9 through L3 for spinous process areas without bony deformity, bony crepitus, swelling or soft tissue injury. There is also moderate tenderness in the paraspinous muscles without spasm. Decreased range of motion at the waist due to pain. Was not able to perform a straight leg raise test. No CVA tenderness. THORAX: Lungs sounds are clear to auscultation and equal bilaterally with symmetrical chest wall. ABDOMEN: Flat, soft and nontender. Positive bowel sounds in all quadrants. No guarding, rigidity or organomegaly. UPPER extremities: No gross bony deformity. No tenderness in the shoulder, forearms, wrists or hands. Right: Tenderness over the lateral and medial epicondylar area of the humerus without bony deformity or crepitus. Mild tenderness over the olecranon process without bony deformity or crepitus. I do not appreciate any local swelling. She had decreased range of motion over the last few degrees of flexion and extension. She refused to do pronation and supination due to pain. When that area was stabilize she had full range of motion in flexion, extension and radial ulnar deviation of the wrist and opposition of the thumb the fall figures. Distal pulses sensation and capillary refill overall brisk in the hand. LOWER EXTREMITIES: No gross bony deformities. No shortening or malrotation. No tenderness over the hips, thighs, knees, lower legs, ankles or feet. 2+ patellar and Achilles deep tendon reflexes are intact and equal bilaterally. 4/ 5 muscle strength in all movements of the hips, knees and ankles. All distal neurovascular statuses are intact and equal bilaterally. ED Course: Patient is assessed as noted above. Patient's medication list was reviewed. Right Elbow X-Rays: Were read by myself and the radiologist showing no acute fractures or dislocations. No joint effusions. Thoracic Spine X-Rays: Was read by myself and the radiologist and shows no acute fractures or subluxations. No compression deformities. Lumbar Spine X-Rays: Were read by myself and the radiologist showing no acute fractures or subluxations. Radiologist notes mild levoscoliosis and a moderate stool burden in the right and transverse colon. Right upper extremity was placed in an arm sling. Patient was educated about today's findings and instructed on her treatment plan ; she verbalized understanding and agreement with this plan. Clinical Impression: Fall. Right elbow pain. Thoracic and lumbar back pain. Disposition: Patient discharged home in stable condition; prior to departure she was reassessed and subjectively reported she was feeling much better and rated her overall discomfort 2/10. Plan: Patient was prescribed Toradol and encouraged use 10 mg every 6 hours as needed for pain. Patient was encouraged use ice or heat over areas of pain. Patient was encouraged use arm sling for 3-4 days or until pain free. Patient is encouraged to follow-up with her PCP if no better in 7 days. Patient was encouraged to follow-up with orthopedics if her elbow pain was no better in 7 days. Patient is encouraged return ED for worsening pain, uncontrolled swelling, extremity weakness/numbness/tingling, bowel and bladder dysfunction, genital paresthesias or any new/concerning symptoms.
== END 2017-12-16 15:00 | disposition home or self-care (01) ==
LOC: C.EDB 12:20 → C.EDD 15:00
DX: M25.521 Pain in right elbow (principal); M54.6 Pain in thoracic spine; M54.5 Low back pain; W01.198A Fall on same level from slipping, tripping and stumbling with subsequent striking against other object, initial encounter; Y93.01 Activity, walking, marching and hiking; Y99.8 Other external cause status; Y92.89 Other specified places as the place of occurrence of the external cause; F32.9 Major depressive disorder, single episode, unspecified; Z87.59 Personal history of other complications of pregnancy, childbirth and the puerperium; Z79.899 Other long term (current) drug therapy

== ENCOUNTER 2018-01-24 08:14 | Emergency (ER) | payer OTHER ==
[~2018-01-24] VITALS: Ht 154.9 cm; Wt 61.7 kg
[~2018-01-24 08:14] MED LIST changes: -HYDR-5688 PO; -PRED20TA2 PO
[2018-01-24 08:23] VITALS: TEMP 36.7; Ht 154.9 cm; Wt 61.7 kg
[2018-01-24] MEDS ORDERED: ONDANSETRON INJ 2 MG/ML 2 ML VIAL IV STA (08:44)
[2018-01-24] MEDS ORDERED: SODIUM CHLORIDE 0.9% 1000ML 1,000 ML IV STA (08:44)
--- NOTE | 2018-01-24 09:06 | DIAGNOSTIC IMAGING REPORT ---
CHEST ONE VIEW PORTABLE CLINICAL HISTORY: 27 years-old Female presenting with CHEST PAIN. TECHNIQUE: Portable upright AP view of the chest was obtained. COMPARISON: 01/24/2016. FINDINGS: Cardiomediastinal silhouette normal. Lungs and pleural spaces clear. Osseous structures normal. Upper abdomen normal. IMPRESSION: 1. No acute cardiopulmonary disease. Electronically signed by: Domenico Shay M.D. 01/24/2018 9:05 AM Dictated Date/Time: 01/24/2018 9:04 AM
[2018-01-24] MEDS ORDERED: PRENTAB26 PO (09:19)
[2018-01-24 09:22] LABS: BASO % 0.4 %; BASO ABS # 0.04 K/uL (0-0.2); EOS % 5.4 %; EOS ABS # 0.48 K/uL (0-0.5); HEMATOCRIT 34.6 % (37-47); HEMOGLOBIN 12.2 g/dL (12.0-16.0); IG# 0.03 K/uL (0.00-0.02); LYMPH % 28.5 %; LYMPH ABS # 2.54 K/uL (1.2-3.4); MEAN CELL VOLUME 81.8 fL (80-100); MEAN CORPUSCULAR HEMOGLOBIN 28.8 pg (25-34); MEAN CORPUSCULAR HGB CONC 35.3 g/dl (32-36); MEAN PLATELET VOLUME 8.6 fL (7.4-10.4); MONO % 7.3 %; MONO ABS # 0.65 K/uL (0.11-0.59); NEUT % 58.1 %; NEUT ABS # 5.16 K/uL (1.4-6.5); PLATELET COUNT 315 K/uL (130-400); RED CELL DISTRIBUTION WIDTH CV 13.3 % (11.5-14.5); RED CELL DISTRIBUTION WIDTH SD 40.1 fL (36.4-46.3)
[2018-01-24 09:37] LABS: ALBUMIN 3.8 gm/dl (3.4-5.0); ALT/SGPT 15 U/L (12-78); BLOOD UREA NITROGEN 10 mg/dl (7-18); CALCIUM 8.9 mg/dl (8.5-10.1); CARBON DIOXIDE 25 mmol/L (21-32); CREATININE 0.71 mg/dl (0.60-1.20); GLUCOSE 81 mg/dl (70-99); LIPASE 157 U/L (73-393); POTASSIUM 3.6 mmol/L (3.5-5.1); SODIUM 136 mmol/L (136-145)
[2018-01-24 09:40] LABS: ALKALINE PHOSPHATASE 47 U/L (45-117); AST/SGOT 11 U/L (15-37); TOTAL PROTEIN 7.4 gm/dl (6.4-8.2)
[2018-01-24] MEDS ORDERED: ONDA4TAB10 SL (11:10)
[2018-01-24 11:50] VITALS: BP 104/58; PULSE 70; O2SAT 100
--- NOTE | 2018-01-24 17:12 | EMERGENCY ROOM VISIT NOTE ---
ED Visit Note First contact with patient: 08:28 Chief Complaint: Chest pain and dizziness. History of Present Illness: Ms. Jackson is a 27 year-old white female who ambulates into the ED complaining of chest pain and dizziness. Historically patient reports if again cardiovascular diseases, pulmonary diseases. Patient is 5 para 3. With 1 miscarriage and a history requiring blood transfusions during another . She reports she took a home test approximately 3-4 weeks ago and it was positive. She called her DIRECTOR OF INTELLIGENCE has an appointment on February 06. Patient reports awoke normally this morning, approximately 4.5 hours ago, but when she started walking around her house she became nauseated and was having dizziness; further evaluation of her dizziness seems to this presentation is more lightheadedness; no spinning attributes to her symptoms. She reports she had something to eat and felt better. She continued to prepare for work and when she arrived at work she had return of symptoms but also chest pain. Currently patient is not able to describe her discomfort but places her discomfort over the mid chest and over the left sternal border. Her pain is only when she is ambulating and she is pain-free at rest. The pain with ambulation is rated 8/10. The pain is nonradiating. She has not identified any aggravating factors related to the pain. She has not taken any medications for pain prior to arrival at the hospital. Associated with her pain she reports that she becomes more nauseated with her pain. Historically she does report that with her previous she had significant morning sickness. Patient denies fevers, chills, sweats, skin eruptions, skin color changes, upper respiratory tract symptoms, wheezing, cough, shortness of breath, orthopnea, dependent edema, previous clots, claudication, cramping, recent surgery/inactivity/extended travel, abdominal pain, diarrhea, constipation, rectal bleeding, black/tarry stools, urinary symptoms, vaginal bleeding, vaginal drainage/discharge, back/flank pain. Review of Systems: As noted above in history of present illness. All body systems were reviewed and found to be negative as noted above. Past Medical History: As previously noted, bronchitis, gallbladder disease, unspecified urinary symptoms, kidney stones, Lyme's disease, anemia. Current Medications: Multivitamins. Allergies to Medications: Nitrofurantoin. Social History: Patient is currently employed; she lives with her boyfriend and children and feels safe in her home environment; she reports she stopped smoking approximately 1 week ago and she denies tobacco use. Physical Examination: Vital Signs: Date Time Temp Pulse Resp B/P (MAP) Pulse Ox O2 Delivery O2 Flow Rate FiO2 01/24/18 11:50 70 14 104/58 100 01/24/18 10:51 66 20 102/65 100 Room Air 01/24/18 10:06 94/62 01/24/18 09:19 94 111/62 78 101/68 92 111/66 01/24/18 08:40 85 01/24/18 08:23 36.7 91 17 137/85 100 Room Air GENERAL: 27-year-old female in mild distress due to symptoms, nontoxic-appearing , afebrile and hemodynamically stable. NEUROLOGICAL: Awake, alert and oriented to person, place and time. Answering questions appropriately and following commands. Normal gait. Good hand eye coordination. Cranial nerves II through XII grossly intact. Good short-term and long-term recall. SKIN: Warm, dry and pink. No soft tissue eruptions or trauma noted. HEENT: Atraumatic and normocephalic. PERRLA. Sclera white and conjunctiva pink. Oral cavity moist and pink. Pharynx is nonerythematous or edematous. Speech normal. No lymphadenopathy. Trachea midline. No jugular venous distention. No carotid bruits. BACK: No tenderness over the bony spine. No CVA tenderness. THORAX: Lungs sounds are clear to auscultation and equal bilaterally with symmetrical chest wall. No wheezing, rales or rhonchi. No crepitus, tenderness , subcutaneous air or deformities noted. HEART: Regular rate and rhythm. No gallops, rubs or murmurs are appreciated. No lifts, heaves or thrills. PMI is not displaced. ABDOMEN: Flat, soft and nontender. Positive bowel sounds in all quadrants. No guarding, rigidity or organomegaly. EXTREMITIES: Moves all extremities well on command and with purpose. All distal neurovascular statuses are intact and equal bilaterally. No dependent edema or calf tenderness/cords. ED Course: Patient is assessed as noted above. Patient's medication list was reviewed. Laboratory Testing: Test 01/24/18 08:35 01/24/18 09:05 01/24/18 10:30 Range/Units Urine Test POS NEG White Blood Count 8.90 4.8-10.8 K/uL Red Blood Count 4.23 4.2-5.4 M/uL Hemoglobin 12.2 12.0-16.0 g/dL Hematocrit 34.6 37-47 % Mean Corpuscular Volume 81.8 80-100 fL Mean Corpuscular Hemoglobin 28.8 25-34 pg Mean Corpuscular Hemoglobin Concent 35.3 32-36 g/dl Platelet Count 315 130-400 K/uL Mean Platelet Volume 8.6 7.4-10.4 fL Neutrophils (%) (Auto) 58.1 % Lymphocytes (%) (Auto) 28.5 % Monocytes (%) (Auto) 7.3 % Eosinophils (%) (Auto) 5.4 % Basophils (%) (Auto) 0.4 % Neutrophils # (Auto) 5.16 1.4-6.5 K/uL Lymphocytes # (Auto) 2.54 1.2-3.4 K/uL Monocytes # (Auto) 0.65 0.11-0.59 K/uL Eosinophils # (Auto) 0.48 0-0.5 K/uL Basophils # (Auto) 0.04 0-0.2 K/uL RDW Standard Deviation 40.1 36.4-46.3 fL RDW Coefficient of Variation 13.3 11.5-14.5 % Immature Granulocyte % (Auto) 0.3 % Immature Granulocyte # (Auto) 0.03 0.00-0.02 K/uL Sodium Level 136 136-145 mmol/L Potassium Level 3.6 3.5-5.1 mmol/L Chloride Level 104 98-107 mmol/L Carbon Dioxide Level 25 21-32 mmol/L Anion Gap 6.0 3-11 mmol/L Blood Urea Nitrogen 10 7-18 mg/dl Creatinine 0.71 0.60-1.20 mg/dl Est Creatinine Clear Calc Drug Dose 102.0 ml/min Estimated GFR () 137.2 Estimated GFR (Non- 118.4 BUN/Creatinine Ratio 14.5 10-20 Random Glucose 81 70-99 mg/dl Calcium Level 8.9 8.5-10.1 mg/dl Total Bilirubin 0.2 0.2-1 mg/dl Direct Bilirubin < 0.1 0-0.2 mg/dl Aspartate Amino Transf (AST/SGOT) 11 15-37 U/L Alanine Aminotransferase (ALT/SGPT) 15 12-78 U/L Alkaline Phosphatase 47 45-117 U/L Total Protein 7.4 6.4-8.2 gm/dl Albumin 3.8 3.4-5.0 gm/dl Lipase 157 73-393 U/L Human Chorionic Gonadotropin, Quant 76278 mIU/mL Bedside Troponin I < 0.030 0-0.045 ng/ml EKG: Was read by myself and reviewed with Dr. Isidro; shows normal sinus rhythm with a ventricular rate of 78 bpm. Normal axis, intervals and complexes. No acute ST changes indicating ischemia, injury or infarction. Medical records were reviewed and her EKG was compared to a previous from December 2015 and no acute changes were noted. Chest X-Rays: Were read by myself and the radiologist showing no acute infiltrates, effusions or pneumothorax. Normal heart silhouette and bony anatomy. Patient was hydrated with normal saline and received 4 mg of Zofran IV for nausea. Patient was reassessed multiple times during her stay in the emergency department. Prior to discharge patient was ambulated around the department and had no return of chest pain. Patient was educated about today's findings and instructed on her treatment plan ; she verbalized understanding and agreement with this plan. Clinical Impression: Lightheadedness. Nausea/vomiting. Chest pain. Decision-Making: Initially my differential diagnosis I considered pulmonary embolism, acute coronary syndrome, arrhythmia, pneumothorax, and other causes. Disposition: Patient discharged home in stable condition; prior to departure she was reassessed and subjectively reported that she was symptom-free. Plan: Patient was encouraged to stay well-hydrated with increased clear fluids. Patient was encouraged to 650 mg of acetaminophen as needed for pain. Patient was prescribed Zofran 4 mg every 8 hours as needed for nausea/vomiting. Patient was encouraged to follow-up with family doctor and her DIRECTOR OF INTELLIGENCE specialist for definitive care and treatment. Patient was encouraged return the ED for return of chest pain, shortness of breath, fevers, coughing up blood, worsening vomiting or any new/concerning symptoms.
== END 2018-01-24 11:50 | disposition home or self-care (01) ==
LOC: C.EDB 08:15
DX: O99.89 Other specified diseases and conditions complicating pregnancy, childbirth and the puerperium (principal); Z3A.01 Less than 8 weeks gestation of pregnancy; R07.9 Chest pain, unspecified; R42 Dizziness and giddiness; R11.0 Nausea; Z87.59 Personal history of other complications of pregnancy, childbirth and the puerperium; Z87.442 Personal history of urinary calculi; Z87.891 Personal history of nicotine dependence

== ENCOUNTER 2018-01-29 23:48 | Emergency (ER) | payer OTHER ==
[~2018-01-29] VITALS: Ht 154.9 cm; Wt 62.5 kg
[~2018-01-29 23:48] MED LIST changes: -BCPILLS PO; -BUSP1TAB46 PO; +ONDA4TAB10 SL; +PRENTAB26 PO
[2018-01-29 23:54] VITALS: TEMP 36.6; Ht 154.9 cm; Wt 62.5 kg
--- NOTE | 2018-01-29 23:55 | EMERGENCY ROOM VISIT NOTE ---
History Report prepared by Amanda: Sammy Milton Under the Supervision of: Dr. Katina Guajardo D.O. First contact with patient: 23:52 Chief Complaint: ED VAG BLEEDING Stated Complaint: 4 WKS ,BLEEDING,CLOTTING History of Present Illness The patient is a 27 year old female who presents to the Emergency Room with complaints of constant vaginal bleeding that occurred prior to arrival. The patient states she was getting into the shower and noticed she passed a blood clot. She reports she is currently 4 weeks with her 5th . The patient notes she has three children and experienced one miscarriage around 4 weeks in her third . She states she has a history of anemia and takes slow-release iron. The patient reports she is also taking vitamins. She notes she was not trying to become , and she lives with her three children. The patient states she drove herself to the ED, and her blood type is O negative. She reports she has an appointment with [facility] in a week. She states she went to the restroom in the ED and was still bleeding. The patient notes cramping. She denies weakness and lightheadedness. Source of History: patient Onset: prior to arrival Position: other (vagina) Quality: other (bleeding) Timing: constant Associated Symptoms: No weakness Note: Associated symptoms: cramping Denies: lightheadedness Review of Systems See HPI for pertinent positives & negatives. A total of 10 systems reviewed and were otherwise negative. Past Medical & Surgical Medical Problems: (1) Abdominal cramping (2) Abdominal cramping, bilateral lower quadrant (3) Abdominal pain (4) Abdominal pain (5) Acute bronchitis (6) Acute gastritis (7) Anemia (8) Anemia (9) Anemia of (10) Back strain (11) Back strain (12) Biliary colic (13) Yuri Muniz contractions (14) Cholelithiasis (15) Cholelithiasis (16) Constipation (17) Depression (18) Flank pain (19) GI bleed (20) GI bleed (21) Headache (22) Headache (23) Hyperthyroidism (24) Insect bite (25) Intrauterine (26) labor (27) Left shoulder pain (28) Leukocytosis (29) Low back pain (30) Miscarriage (31) Nausea & vomiting (32) Nausea & vomiting (33) Normal labor (34) Ovarian cyst (35) Pleurisy (36) Pleuritic chest pain (37) (38) with 38 completed weeks gestation (39) Pyelonephritis (40) Sore throat (41) Spasm of back muscles (42) Sprain of knee (43) Strain of left trapezius muscle (44) Strain of left trapezius muscle (45) Thoracic myofascial strain (46) Threatened miscarriage (47) Threatened miscarriage (48) Upper respiratory infection (49) Urinary tract infection (50) UTI (urinary tract infection) (51) UTI (urinary tract infection) (52) UTI (urinary tract infection) (53) UTI (urinary tract infection) (54) Vaginal delivery (55) Vaginal discharge (56) Viral gastritis Family History Malignancy Social History Smoking Status: Former Smoker Alcohol Use: none Drug Use: none Marital Status: in relationship Housing Status: lives with significant other Occupation Status: employed Current/Historical Medications Scheduled Ibuprofen Tab (Advil), 400 MG PO AMPM Multivit/Min/Iron/Fol Ac/Pren ( Vitamin), 1 TAB PO HS Ondasetron Odt (Zofran Odt), 4 MG SL Q6H Allergies Coded Allergies: Nitrofurantoin (Verified Allergy, Mild, BLISTERS IN MOUTH, 01/29/18) SWELLING Physical Exam Vital Signs Date Time Temp Pulse Resp B/P (MAP) Pulse Ox O2 Delivery O2 Flow Rate FiO2 01/30/18 03:58 70 18 92/58 100 01/30/18 01:56 62 18 103/63 99 Room Air 01/29/18 23:54 36.6 79 18 122/77 100 Room Air Physical Exam HEENT: Head - normocephalic and atraumatic Pupils are equal, round, and reactive to light. Extraocular eye muscles are intact, and sclera are anicteric. Nose - moist nasal mucosa without discharge. Mouth - moist buccal mucosa. Oropharynx is nonerythematous and there is no tonsillar exudate or edema noted. Neck: Supple; no JVD, nuchal rigidity, cervical lymphadenopathy. Heart: Regular rate and rhythm. There is a normal S1 and S2 with no murmurs, clicks, or gallops appreciated. Lungs: Clear to auscultation bilaterally with no wheezes, rales, or rhonchi. Abdomen: Soft, completely nontender, nondistended, with good bowel sounds. There are no palpable pulsatile masses or hepatosplenomegaly. There is no guarding, rigidity, or rebound noted. Extremities: No evidence of cyanosis, clubbing, or edema. There are easily palpable peripheral pulses. Skin: Pale, warm and dry with good turgor and no rashes. Medical Decision & Procedures ER Provider Diagnostic Interpretation: Radiology results as stated below per my review and the radiologist's interpretation: US OB 1st TRIMESTER: Single IUP 7 weeks 6 days by measurements. heart tones 157 bpm. There are 2 regions of perigestational hemorrhage measuring 1.2 cm and 1.7cm. Doppler flow is present in both ovaries. There is a left ovarian corpus luteum. No significant free pelvic fluid. Radiologist: Rangel Ricci MD Study ready at 0208 and initial results transmitted at 0233. Laboratory Results Test 01/30/18 00:27 Human Chorionic Gonadotropin, Quant 24910 mIU/mL Laboratory results per my review. ED Course 0015: Past medical records reviewed. The patient was evaluated in room A12B. A complete history and physical exam was performed. Labs were drawn as above. The patient went for ultrasound. 0332: I discussed the patient's case with Dr. Rivera, VISITOR SERVICES ASSOCIATE. She recommended placing the patient on pelvic rest and contact for a follow up. 0337: Upon reevaluation, the patient is resting and feeling better. I discussed findings and results with her. She verbalized agreement of the treatment plan. The patient was discharged home. Medical Decision The patient is a 27 year old female who presents to the ED with vaginal bleeding. Differential diagnosis includes spontaneous miscarriage, subchorionic hemorrhage, ectopic . [place] show: [place] [address]. Pt is O negative blood type. This is a 013 who presents to the emergency department with vaginal bleeding. The patient believes that she is approximately 4 weeks . Ultrasound shows evidence of subchorionic hemorrhage with a 7 week 6 day gestation. Quantitative hCG was greater than 70,000. The patient is Rh- and therefore had RhoGam. The patient will follow up with obstetrics. Medication Reconcilliation Current Medication List: was personally reviewed by me Blood Pressure Screening Patient's blood pressure: Normal blood pressure Blood pressure disposition: Did not require urgent referral Consults Time Called: 221 Consulting Physician: Dr. Rivera, VISITOR SERVICES ASSOCIATE Returned Call: [phone] I discussed the patient's case with Dr. Rivera, VISITOR SERVICES ASSOCIATE. She recommended placing the patient on pelvic rest and contact for a follow up. Impression Primary Impression: Threatened miscarriage Scribe Attestation The scribe's documentation has been prepared under my direction and personally reviewed by me in its entirety. I confirm that the note above accurately reflects all work, treatment, procedures, and medical decision making performed by me. Departure Information Dispostion Home / Self-Care Referrals Kina Chen,C.R.N.P. (PCP) Forms HOME CARE DOCUMENTATION FORM, IMPORTANT VISIT INFORMATION, WORK / SCHOOL INSTRUCTIONS Patient Instructions ED Miscarriage Poss, My [facility] Additional Instructions Rest. No strenuous activity. Observe pelvic rest. If you start to bleed heavily - soaking more than a pad per hour, return to the ER. OB office will contact you with follow up.
[2018-01-30 03:58] VITALS: BP 92/58; PULSE 70; O2SAT 100
--- NOTE | 2018-01-30 07:28 | DIAGNOSTIC IMAGING REPORT ---
ECTOPIC CLINICAL HISTORY: 27 years-old Female presenting with eval for miscarriage/ectopic, cramping and spotting, unknown last menstrual period, . TECHNIQUE: Real-time grayscale and M-mode Doppler ultrasound imaging of the pelvis was performed using a transabdominal probe. Color and spectral Doppler ultrasound imaging of the adnexa was also performed. COMPARISON: 08/01/2016. FINDINGS: Uterus: Single live intrauterine . [place]-rump length 16 mm with an estimated gestational age of 7 weeks 6 days with an estimated date of delivery 09/12/2018. heart rate 158 beats per minute. Anteverted uterus. Normal amniotic fluid volume. Unable to accurately assess placental implantation secondary to early gestational age. Two small hypoechoic avascular regions within the uterine cavity adjacent to the gestational sac. One measures 1.3 cm and is located in the lower uterine segment and the second in the anterior fundus measures 1.2 cm. These encompass a minority of the circumference of the gestational sac. Cervix long and closed. Right adnexum: Right ovary normal. Right ovary measures 3.6 x 1.9 x 1.2 cm. Normal color Doppler flow and arterial and venous waveforms within the ovarian parenchyma. Left adnexum: Left ovary contains a corpus luteum. Left ovary measures 4.1 x 1.9 x 2.5 cm. Normal color Doppler flow and arterial and venous waveforms within the ovarian parenchyma. Other: No free fluid. IMPRESSION: 1. Single live intrauterine with an estimated gestational age of 7 weeks 6 days and estimated date of delivery 09/12/2018. Two small perigestational hemorrhages, which are of doubtful clinical significance. Clinical follow-up recommended. 2. Normal ovaries. Electronically signed by: Domenico Shay M.D. 01/30/2018 7:26 AM Dictated Date/Time: 01/30/2018 6:59 AM
== END 2018-01-30 03:55 | disposition home or self-care (01) ==
LOC: C.EDB 23:49 → C.EDA 01-30 03:55
DX: O20.0 Threatened abortion (principal); Z3A.01 Less than 8 weeks gestation of pregnancy; D64.9 Anemia, unspecified; Z87.891 Personal history of nicotine dependence; Z88.1 Allergy status to other antibiotic agents

== ENCOUNTER 2018-02-06 20:56 | Emergency (ER) | payer OTHER ==
[2018-02-06 22:35] LABS: HEMATOCRIT 32.3 % (37-47); HEMOGLOBIN 11.3 g/dL (12.0-16.0); MEAN CORPUSCULAR HEMOGLOBIN 28.7 pg (25-34); MEAN PLATELET VOLUME 8.9 fL (7.4-10.4); PLATELET COUNT 300 K/uL (130-400); RED CELL DISTRIBUTION WIDTH CV 13.2 % (11.5-14.5); RED CELL DISTRIBUTION WIDTH SD 39.7 fL (36.4-46.3); WHITE BLOOD COUNT 11.19 K/uL (4.8-10.8)
[2018-02-06 22:48] LABS: BLOOD UREA NITROGEN 10 mg/dl (7-18); CALCIUM 9.3 mg/dl (8.5-10.1); CARBON DIOXIDE 24 mmol/L (21-32); CREATININE 0.59 mg/dl (0.60-1.20); GLUCOSE 83 mg/dl (70-99); POTASSIUM 3.8 mmol/L (3.5-5.1); SODIUM 135 mmol/L (136-145)
[2018-02-07 00:01] VITALS: BP 102/55; PULSE 69; TEMP 36.8; O2SAT 99
--- NOTE | 2018-02-07 00:06 | EMERGENCY ROOM VISIT NOTE ---
History First contact with patient: 23:00 Chief Complaint: ABDOMINAL PAIN Stated Complaint: ABDOMINAL PAIN History of Present Illness The patient is a 27 year old female who presents to the Emergency Room with complaints of left lower suprapubic pain for the past day who is currently 9 weeks . This is her fifth . She has 3 living children. She had a spontaneous in the past. She was seen here the other day and given RhoGam for vaginal bleeding. This is all resolved now per patient. Patient states she has had ovarian cyst before and symptoms feel similar. She describes pain as cramping, ranging in severity 6 out of 10 to the left lower suprapubic region. Nothing makes it better or worse. It does not radiate. Patient denies chest pain, dyspnea, fever, chills, nausea, vomiting, diarrhea, back pain, flank pain, urinary symptoms, vaginal itching or discharge. Patient sees [facility]. Blood type is O-. Review of Systems An 10 system review of systems was completed with positives and pertinent negatives listed in the HPI. Past Medical/Surgical History Medical Problems: (1) Abdominal cramping (2) Abdominal cramping, bilateral lower quadrant (3) Abdominal pain (4) Abdominal pain (5) Acute bronchitis (6) Acute gastritis (7) Anemia (8) Anemia (9) Anemia of (10) Back strain (11) Back strain (12) Biliary colic (13) Yuri Muniz contractions (14) Cholelithiasis (15) Cholelithiasis (16) Constipation (17) Depression (18) Flank pain (19) GI bleed (20) GI bleed (21) Headache (22) Headache (23) Hyperthyroidism (24) Insect bite (25) Intrauterine (26) labor (27) Left shoulder pain (28) Leukocytosis (29) Low back pain (30) Miscarriage (31) Nausea & vomiting (32) Nausea & vomiting (33) Normal labor (34) Ovarian cyst (35) Pleurisy (36) Pleuritic chest pain (37) (38) with 38 completed weeks gestation (39) Pyelonephritis (40) Sore throat (41) Spasm of back muscles (42) Sprain of knee (43) Strain of left trapezius muscle (44) Strain of left trapezius muscle (45) Thoracic myofascial strain (46) Threatened miscarriage (47) Threatened miscarriage (48) Upper respiratory infection (49) Urinary tract infection (50) UTI (urinary tract infection) (51) UTI (urinary tract infection) (52) UTI (urinary tract infection) (53) UTI (urinary tract infection) (54) Vaginal delivery (55) Vaginal discharge (56) Viral gastritis Family History Malignancy Social History Smoking Status: Never Smoker Alcohol Use: none Drug Use: none Marital Status: in relationship Housing Status: lives with significant other Occupation Status: employed Current/Historical Medications Scheduled Ibuprofen Tab (Advil), 400 MG PO AMPM Multivit/Min/Iron/Fol Ac/Pren ( Vitamin), 1 TAB PO HS Ondasetron Odt (Zofran Odt), 4 MG SL Q6H Physical Exam Vital Signs Date Time Temp Pulse Resp B/P (MAP) Pulse Ox O2 Delivery O2 Flow Rate FiO2 02/07/18 00:01 36.8 69 18 102/55 99 Physical Exam VITALS: Vitals are noted on the nurse's note and reviewed by myself. Vital signs stable. GENERAL: Pleasant female, in no acute distress, nondiaphoretic, well-developed well-nourished. SKIN: Capillary reflex less than 2 seconds. HEENT: Normocephalic. PERRLA. EOMI. Nares patent. Mucous membranes moist. Neck is supple without nuchal rigidity. HEART: Regular rate and rhythm without murmurs gallops or rubs. LUNGS: Clear to auscultation bilaterally without wheezes, rales or rhonchi. No retractions or accessory muscle use. ABDOMEN: Positive bowel sounds x 4. Normal tympanic percussion. Soft, minimally tender left lower suprapubic region , without masses or organomegaly. Tim sign negative. No guarding or rebound tenderness. No CVA tenderness MUSCULOSKELETAL: No gross musculoskeletal defects. NEURO: Patient was alert and oriented to person place and time. Normal sensation to light and sharp touch. No focal neurological deficits. Medical Decision & Procedures Laboratory Results 02/06/18 21:35 02/06/18 21:35 Test 02/06/18 21:35 02/06/18 22:00 Red Blood Count 3.94 M/uL (4.2-5.4) Mean Corpuscular Volume 82.0 fL (80-100) Mean Corpuscular Hemoglobin 28.7 pg (25-34) Mean Corpuscular Hemoglobin Concent 35.0 g/dl (32-36) RDW Standard Deviation 39.7 fL (36.4-46.3) RDW Coefficient of Variation 13.2 % (11.5-14.5) Mean Platelet Volume 8.9 fL (7.4-10.4) Anion Gap 6.0 mmol/L (3-11) Estimated GFR () 147.6 Estimated GFR (Non- 127.4 BUN/Creatinine Ratio 16.1 (10-20) Calcium Level 9.3 mg/dl (8.5-10.1) Human Chorionic Gonadotropin, Qual POS (NEG) Human Chorionic Gonadotropin, Quant 07474 mIU/mL Urine Color YELLOW Urine Appearance CLEAR (CLEAR) Urine pH 7.0 (4.5-7.5) Urine Specific [place] 1.014 (1.000-1.030) Urine Protein NEG (NEG) Urine Glucose (UA) NEG (NEG) Urine Ketones NEG (NEG) Urine Occult Blood NEG (NEG) Urine Nitrite NEG (NEG) Urine Bilirubin NEG (NEG) Urine Urobilinogen NEG (NEG) Urine Leukocyte Esterase LARGE (NEG) Urine WBC (Auto) 10-30 /hpf (0-5) Urine RBC (Auto) 0-4 /hpf (0-4) Urine Hyaline Casts (Auto) 0 /lpf (0-5) Urine Epithelial Cells (Auto) >30 /lpf (0-5) Urine Bacteria (Auto) 1+ (NEG) ED Course Prior records/ancillary studies reviewed. Triage Nursing notes reviewed. The patient's history was concerning for suprapubic abdominal pain. Differential diagnosis: Differential diagnosis includes salpingitis, , ectopic , incomplete , septic , ruptured ovarian cyst, ovarian torsion, Mittelschmerz, endometritis, dysmenorrhea, appendicitis, PID, and others. Physical examination findings: As above. ER treatment provided: IV fluids On reassessment the patient felt better. Diagnostics interpreted by me: The labs revealed leukocytosis most likely from . Quant 83, 190 Urine concerning for contamination sent for culture. Patient had no urinary symptoms Imaging studies: Ultrasound was read by stat radiology and verifies IUP with heart rate 170, subchorionic hematoma and left corpus luteum cyst Exam and history seem consistent with left ovarian cyst with ongoing viable IUP. Patient had a viable IUP on ultrasound. No torsion. Patient was neurovascularly and Neurologically intact. patient was not having any vaginal bleeding. She has already received her RhoGam. She is advised to follow-up in the next day or 2 with her WEB PROJECT MANAGER or here in the ER sooner for abdominal pain, fevers, vomiting, worsening signs or symptoms or as needed. Patient had no urinary symptoms and agrees to treatment plan of awaiting for urine culture results before starting antibiotics. By the evaluation outlined above emergent etiologies such as appendicitis, diverticulitis, PUD, biliary pathology, UTI, pancreatitis, obstruction, mesenteric ischemia, aortic pathology, infections, inflammatory bowel disease, renal colic, as well as others were deemed relatively unlikely. The pt informed about the findings as listed above. All questions were answered and pleased with the treatment. Return instructions were outlined and the patient was discharged in stable condition. Referral: The patient was referred back to their marketing education teacher for follow-up in 2 to 3 days for a recheck of the current condition. Case reviewed with my attending The chart was completed utilizing [employer] Speech voice recognition software. Grammatical errors, random word insertions, pronoun errors, and incomplete sentences are an occassional consequence of this system due to software limitations, ambient noise, and hardware issues. Any formal questions or concerns about the content, text, or information contained within the body of this dictation should be directly addressed to the physician creative assistant for clarification. Medical Decision As above Medication Reconcilliation Current Medication List: was personally reviewed by me Blood Pressure Screening Patient's blood pressure: Normal blood pressure Impression Primary Impression: Ovarian cyst, left Departure Information Referrals Kina Chen,C.R.N.P. (PCP) Patient Instructions My [facility]
--- NOTE | 2018-02-07 07:47 | DIAGNOSTIC IMAGING REPORT ---
ULTRASOUND (transabdominal and endovaginal scanning) CLINICAL HISTORY: . Pelvic pain. COMPARISON STUDY: 01/30/2018 FINDINGS: The uterus measured 12.2 x 6.1 x 7.8 cm. There is an intrauterine gestational sac. A single live intrauterine gestation was visualized. The crown-rump rump length measured 24 mm corresponding to an estimated postmenstrual age of 9 weeks and 0 days. A yolk sac was visualized. There is a small subchorionic hematoma measuring 22 x 19 x 23 mm. The right ovary measured 33 x 19 x 25 mm. There is a 14 mm follicle. The left ovary measures 51 x 17 x 33 mm. There is a collapsed cyst. IMPRESSION: 1. Single live intrauterine gestation. The estimated postmenstrual age is 9 weeks 2. Small subchorionic hematoma. Electronically signed by: Nikolay Powell M.D. 02/07/2018 7:46 AM Dictated Date/Time: 02/07/2018 7:43 AM
== END 2018-02-07 00:11 | disposition home or self-care (01) ==
LOC: C.EDB 20:56
DX: N83.202 Unspecified ovarian cyst, left side (principal); O34.81 Maternal care for other abnormalities of pelvic organs, first trimester; Z3A.09 9 weeks gestation of pregnancy; Z86.39 Personal history of other endocrine, nutritional and metabolic disease; Z87.19 Personal history of other diseases of the digestive system; Z87.440 Personal history of urinary (tract) infections

== ENCOUNTER → 2018-02-20 | Outpatient (CLI) | payer OTHER | END | disposition home or self-care (01) | LOC: C.PAPS 11:53 | PROVIDERS: ATTEND Obstetrics & Gynecology | DX: Z34.81 Encounter for supervision of other normal pregnancy, first trimester (principal); R87.610 Atypical squamous cells of undetermined significance on cytologic smear of cervix (ASC-US) ==

== ENCOUNTER → 2018-02-20 | Outpatient (CLI) | payer OTHER | END | disposition home or self-care (01) | LOC: C.LABSPEC 13:27 | PROVIDERS: ATTEND Obstetrics & Gynecology | DX: Z34.81 Encounter for supervision of other normal pregnancy, first trimester (principal) ==

== ENCOUNTER → 2018-03-07 | Outpatient (CLI) | payer OTHER ==
[2018-03-07 13:19] LABS: BASO % 0.2 %; BASO ABS # 0.02 K/uL (0-0.2); EOS % 4.5 %; EOS ABS # 0.38 K/uL (0-0.5); HEMATOCRIT 34.1 % (37-47); IG# 0.02 K/uL (0.00-0.02); LYMPH % 25.5 %; LYMPH ABS # 2.14 K/uL (1.2-3.4); MEAN CORPUSCULAR HEMOGLOBIN 29.6 pg (25-34); MEAN CORPUSCULAR HGB CONC 35.2 g/dl (32-36); MEAN PLATELET VOLUME 9.3 fL (7.4-10.4); MONO % 5.1 %; MONO ABS # 0.43 K/uL (0.11-0.59); NEUT % 64.5 %; NEUT ABS # 5.39 K/uL (1.4-6.5); PLATELET COUNT 297 K/uL (130-400); RED CELL DISTRIBUTION WIDTH CV 13.5 % (11.5-14.5); RED CELL DISTRIBUTION WIDTH SD 41.1 fL (36.4-46.3); WHITE BLOOD COUNT 8.38 K/uL (4.8-10.8)
== END | disposition home or self-care (01) ==
LOC: C.LAB1850 10:25
PROVIDERS: ATTEND Obstetrics & Gynecology
DX: Z34.81 Encounter for supervision of other normal pregnancy, first trimester (principal); R82.71 Bacteriuria